=== PATIENT | female | born 1980 | race American Indian/Alaskan Native ===

== ENCOUNTER 2018-11-18 14:31 | Emergency (ER) | payer MEDICAID ==
--- NOTE | 2018-11-18 14:55 | Emergency Department Report ---
Chief Complaint: Psych Stated Complaint: SI Time Seen by Provider: 11/18/18 14:51 - HPI History of Present Illness: brought in by crisis counselor for hallucinations telling her to hurt herself No SI, No HI pt states she was hearing voices earlier and they were "bothering her" denies visual hallucinations previously has attempted overdose, denies that today PMhx schizoaffective, bipolar, PTSD, dementia, chromosome 9p deletion, seizures states she took her psych meds today (+) smoke (+) meth and crack two days ago no alcohol use MSE screening note: Focused history performed Due to findings the following was ordered: psych protocol ED Disposition for MSE Condition: Stable
[2018-11-18] MEDS ORDERED: ATIVAN IM PRN (15:13)
[2018-11-18] MEDS ORDERED: HALDOL IM PRN (15:13)
--- NOTE | 2018-11-18 15:30 | Emergency Department Report ---
ED General Adult HPI - General Chief complaint: Psych Stated complaint: SI Time Seen by Provider: 11/18/18 14:51 Source: patient Mode of arrival: Ambulatory Limitations: Other (patient psychotic and disorganized) - History of Present Illness Initial comments: This is a 38-year-old female. The patient is not known to this provider previously. Apparently, patient contacted her crisis team for hallucinations, and voices that which I her to overdose on medication. The patient has a history of suicide attempts, and polysubstance use, and possible cognitive delay. The patient presents to the emergency room disorganized, and psychotic. The patient does not have any friends or family members with her. The patient does not have anyone who can provide collateral information. The patient is initially angry, hyperverbal, obviously psychotic, and is not able to demonstrate decision-making capacity, or rational thought process. We attempted to verbally calm the patient down, and also use show of force, to help calm the patient down However, the patient was agitated, belligerent, continued to have hyperactive thought process, and did not demonstrate decision-making capacity or ability to care for herself. Patient was placed in seclusion for her safety. While in seclusion, patient took her sheets, wrapped it around her neck, and began making gestures that she was trying to choke herself. Therefore, the patient is medicated with Haldol, and Ativan, and subsequently Risperdal. She initially listed these medications as "allergies,", where she indicated that her allergic reaction with a seizure. However, after receiving these medications, she did not have any anaphylactic, or anaphylactoid reactions, and she did not have any documented seizures. It is suspected that the patient was untruthful with a reported allergies. -: unknown Quality: other Consistency: other Improves with: other Associated Symptoms: other - Related Data Allergies Allergy/AdvReac Type Severity Reaction Status Date / Time No Known Allergies Allergy Unverified 11/18/18 19:42 ED Review of Systems ROS: Stated complaint: SI Other details as noted in HPI Comment: Unobtainable due to pts medical conditions ED Past Medical Hx - Past Medical History Previous Medical History?: Yes Hx Seizures: Yes Hx Psychiatric Treatment: Yes (schizoaffective, bipolar) Hx Asthma: Yes Hx Dementia: Yes Additional medical history: developmental delay, chromosone 9p deletion, neuropathy - Surgical History Past Surgical History?: Yes - Social History Smoking Status: Current Every Day Smoker Substance Use Type: Cocaine, Methamphetamines ED Physical Exam - General Limitations: Other (A she is psychotic and disorganized) General appearance: anxious, in distress - Eye Eye exam: Present: normal appearance, PERRL, EOMI - ENT ENT exam: Present: normal exam, normal orophraynx, normal external ear exam, other (the patient is speaking in full sentences with no stridor or dysphonia) - Neck Neck exam: Present: normal inspection, full ROM. Absent: tenderness, meningismus - Respiratory Respiratory exam: Present: normal lung sounds bilaterally. Absent: respiratory distress, wheezes, rales, chest wall tenderness - Cardiovascular Cardiovascular Exam: Present: regular rate, normal rhythm, normal heart sounds. Absent: bradycardia, tachycardia, irregular rhythm - GI/Abdominal GI/Abdominal exam: Present: soft. Absent: distended, tenderness, guarding, rebound, rigid - Extremities Exam Extremities exam: Present: full ROM, other (2+ pulses noted in the bilateral upper, lower extremities. Compartments soft. No long bony tenderness. The pelvis is stable.). Absent: pedal edema, joint swelling, calf tenderness - Back Exam Back exam: Present: normal inspection, full ROM. Absent: paraspinal tenderness, vertebral tenderness - Neurological Exam Neurological exam: Present: alert (patient is alert to name. Moving 4 extremities. There is no facial droop. The tongue is midline. Extraocular movements are intact bilaterally.), normal gait - Psychiatric Psychiatric exam: Present: agitated, anxious ED Course Vital Signs 11/18/18 11/18/18 11/18/18 14:53 17:41 18:05 Temperature 98.4 F 98.4 F Pulse Rate 73 89 Respiratory 16 16 20 Rate Blood Pressure 113/67 Blood Pressure 109/58 [Left] O2 Sat by Pulse 98 100 20 L Oximetry - Reevaluation(s) Reevaluation #1: 11/18/18 19:16 Differential diagnosis, including not limited to: Psychosis, suicidality, mood disorder, medical clearance for psychiatric placement Assessment and plan: 38-year-old female with obvious psychosis, inability to care for herself, requires emergency screening laboratory studies to exclude potentially lethal toxicologic ingestion. Please note that there is a delay in acquisition of these laboratory studies as the patient was uncooperative, belligerent, verbally hostile, and required multiple medications and interventions in order to allow safe acquisition of laboratory studies. Patient has had multiple [id number] evaluations by myself after being given the aforementioned sedating medications to allow for safe acquisition of diagnostics. She's not had any adverse events as far. Psychiatric consultation has been requested. Reevaluation #2: 11/18/18 19:53 Laboratory studies reviewed and are unremarkable, at this point in time, there does not appear to be an immediate medical contraindication to psychiatric a dmission, evaluation, consultation and placement. ED Medical Decision Making - Lab Data Result diagrams: 11/18/18 19:12 11/18/18 19:12 Vital Signs 11/18/18 11/18/18 11/18/18 14:53 17:41 18:05 Temperature 98.4 F 98.4 F Pulse Rate 73 89 Respiratory 16 16 20 Rate Blood Pressure 113/67 Blood Pressure 109/58 [Left] O2 Sat by Pulse 98 100 20 L Oximetry Lab Results 11/18/18 11/18/18 11/18/18 Range/Units 19:12 19:12 19:12 WBC 7.2 (4.5-11.0) K/mm3 RBC 4.50 (3.65-5.03) M/mm3 Hgb 12.2 (10.1-14.3) gm/dl Hct 37.3 (30.3-42.9) % MCV 83 (79-97) fl MCH 27 L (28-32) pg MCHC 33 (30-34) % RDW 16.6 H (13.2-15.2) % Plt Count 190 (140-440) K/mm3 Lymph % (Auto) 35.4 H (13.4-35.0) % [place] % (Auto) 9.0 H (0.0-7.3) % Eos % (Auto) 3.3 (0.0-4.3) % Baso % (Auto) 1.0 (0.0-1.8) % Lymph # 2.6 (1.2-5.4) K/mm3 [place] # 0.7 (0.0-0.8) K/mm3 Eos # 0.2 (0.0-0.4) K/mm3 Baso # 0.1 (0.0-0.1) K/mm3 Seg Neutrophils % 51.3 (40.0-70.0) % Seg Neutrophils # 3.7 (1.8-7.7) K/mm3 Sodium 138 (137-145) mmol/L Potassium 4.1 (3.6-5.0) mmol/L Chloride 105.2 (98-107) mmol/L Carbon Dioxide 22 (22-30) mmol/L Anion Gap 15 mmol/L BUN 15 (7-17) mg/dL Creatinine 0.5 L (0.7-1.2) mg/dL Estimated GFR > 60 ml/min BUN/Creatinine Ratio 30 % Glucose 97 (65-100) mg/dL Calcium 8.6 (8.4-10.2) mg/dL Total Creatine Kinase (30-135) units/L HCG, Qual (Negative) Salicylates < 0.3 L (2.8-20.0) mg/dL Acetaminophen (10.0-30.0) ug/mL Plasma/Serum Alcohol (0-0.07) % 11/18/18 11/18/18 11/18/18 Range/Units 19:12 19:12 19:12 WBC (4.5-11.0) K/mm3 RBC (3.65-5.03) M/mm3 Hgb (10.1-14.3) gm/dl Hct (30.3-42.9) % MCV (79-97) fl MCH (28-32) pg MCHC (30-34) % RDW (13.2-15.2) % Plt Count (140-440) K/mm3 Lymph % (Auto) (13.4-35.0) % [place] % (Auto) (0.0-7.3) % Eos % (Auto) (0.0-4.3) % Baso % (Auto) (0.0-1.8) % Lymph # (1.2-5.4) K/mm3 [place] # (0.0-0.8) K/mm3 Eos # (0.0-0.4) K/mm3 Baso # (0.0-0.1) K/mm3 Seg Neutrophils % (40.0-70.0) % Seg Neutrophils # (1.8-7.7) K/mm3 Sodium (137-145) mmol/L Potassium (3.6-5.0) mmol/L Chloride (98-107) mmol/L Carbon Dioxide (22-30) mmol/L Anion Gap mmol/L BUN (7-17) mg/dL Creatinine (0.7-1.2) mg/dL Estimated GFR ml/min BUN/Creatinine Ratio % Glucose (65-100) mg/dL Calcium (8.4-10.2) mg/dL Total Creatine Kinase (30-135) units/L HCG, Qual Negative (Negative) Salicylates (2.8-20.0) mg/dL Acetaminophen < 5.0 L (10.0-30.0) ug/mL Plasma/Serum Alcohol < 0.01 (0-0.07) % 11/18/18 Range/Units 19:12 WBC (4.5-11.0) K/mm3 RBC (3.65-5.03) M/mm3 Hgb (10.1-14.3) gm/dl Hct (30.3-42.9) % MCV (79-97) fl MCH (28-32) pg MCHC (30-34) % RDW (13.2-15.2) % Plt Count (140-440) K/mm3 Lymph % (Auto) (13.4-35.0) % [place] % (Auto) (0.0-7.3) % Eos % (Auto) (0.0-4.3) % Baso % (Auto) (0.0-1.8) % Lymph # (1.2-5.4) K/mm3 [place] # (0.0-0.8) K/mm3 Eos # (0.0-0.4) K/mm3 Baso # (0.0-0.1) K/mm3 Seg Neutrophils % (40.0-70.0) % Seg Neutrophils # (1.8-7.7) K/mm3 Sodium (137-145) mmol/L Potassium (3.6-5.0) mmol/L Chloride (98-107) mmol/L Carbon Dioxide (22-30) mmol/L Anion Gap mmol/L BUN (7-17) mg/dL Creatinine (0.7-1.2) mg/dL Estimated GFR ml/min BUN/Creatinine Ratio % Glucose (65-100) mg/dL Calcium (8.4-10.2) mg/dL Total Creatine Kinase 90 (30-135) units/L HCG, Qual (Negative) Salicylates (2.8-20.0) mg/dL Acetaminophen (10.0-30.0) ug/mL Plasma/Serum Alcohol (0-0.07) % Critical care attestation.: If time is entered above; I have spent that time in minutes in the direct care of this critically ill patient, excluding procedure time. ED Disposition Clinical Impression: Psychosis Disposition: DC/TX-65 PSY HOSP/PSY UNIT Is pt being admited?: No Does the pt Need Aspirin: No Condition: Good Referrals: LOU TRAN MD [Primary Care Provider] - 3-5 Days
[2018-11-18] MEDS ORDERED: GEODON IM ONE (16:15)
[2018-11-18] MEDS ORDERED: GEODON IM PRN (16:30)
[2018-11-18 19:19] LABS: Basophils # (Auto) 0.1 K/mm3 (0.0-0.1); Eosinophils # (Auto) 0.2 K/mm3 (0.0-0.4); Eosinophils % (Auto) 3.3 % (0.0-4.3); Hematocrit 37.3 % (30.3-42.9); Hemoglobin 12.2 gm/dl (10.1-14.3); Lymphocytes # (Auto) 2.6 K/mm3 (1.2-5.4); Lymphocytes % (Auto) 35.4 % (13.4-35.0); Mean Corpuscular HGB Conc 33 % (30-34); Mean Corpuscular Volume 83 fl (79-97); Monocytes # (Auto) 0.7 K/mm3 (0.0-0.8); Platelet Count 190 K/mm3 (140-440); Red Cell Distribution Width 16.6 % (13.2-15.2)
[2018-11-18 19:33] LABS: BUN/Creatinine Ratio 30; Blood Urea Nitrogen 15 mg/dL (7-17); Calcium 8.6 mg/dL (8.4-10.2); Hemolysis Index 22
--- NOTE | 2018-11-19 10:16 | Consultation ---
History of Present Illness - Reason for Consult Consult date: 11/19/18 Reason for consult: Mental Health Evaluation Requesting physician: CLARISSA BASS - Chief Complaint Chief complaint: "I don't want to talk" - History of Present Psychiatric Illness 38 y.o. AA female who presented to the ER because of bizarre behavior. Today the patient refused to talk during the assessment. Per the notes, the patient presented psychotic. No gestures of SI/HI's. Medications and Allergies Allergies Allergy/AdvReac Type Severity Reaction Status Date / Time No Known Allergies Allergy Unverified 11/18/18 19:42 Active Meds: Active Medications Haloperidol Lactate (Haldol) 5 mg IM Q6HR PRN PRN Reason: Agitation Last Admin: 11/18/18 16:34 Dose: 5 mg Documented by: Lorazepam (Ativan) 2 mg IM Q4HR PRN PRN Reason: Agitation Last Admin: 11/18/18 16:34 Dose: 2 mg Documented by: Ziprasidone (Geodon) 10 mg IM Q2H PRN PRN Reason: Agitation Last Admin: 11/18/18 16:33 Dose: 10 mg Documented by: Past psychiatric history - Past Medical History Past Medical History: other (Unable to obtain ) Past Surgical History: Other (Unable to obtain ) - past Psychiatric treatment and history psychiatric treatment history: Unable to obtain a psy hx and a fam psy hx. - Social History Social history: other (Unable to obtain ) Mental Status Exam - Vital signs Last Vital Signs Temp 97.9 F 11/19/18 09:02 Pulse 90 11/19/18 09:02 Resp 18 11/19/18 09:02 BP 108/82 11/19/18 09:02 Pulse Ox 99 11/19/18 09:02 - Exam Narrative exam: Unable to complete the MSE because the patient refuse to cooperate. Results Result Diagrams: 11/18/18 19:12 11/18/18 19:12 Abnormal lab results 11/18/18 11/18/18 11/18/18 Range/Units 19:12 19:12 19:12 MCH 27 L (28-32) pg RDW 16.6 H (13.2-15.2) % Lymph % (Auto) 35.4 H (13.4-35.0) % [place] % (Auto) 9.0 H (0.0-7.3) % Creatinine 0.5 L (0.7-1.2) mg/dL Salicylates < 0.3 L (2.8-20.0) mg/dL Acetaminophen (10.0-30.0) ug/mL 11/18/18 Range/Units 19:12 MCH (28-32) pg RDW (13.2-15.2) % Lymph % (Auto) (13.4-35.0) % [place] % (Auto) (0.0-7.3) % Creatinine (0.7-1.2) mg/dL Salicylates (2.8-20.0) mg/dL Acetaminophen < 5.0 L (10.0-30.0) ug/mL All other labs normal. Assessment and Plan Assessment and plan: Impression: Today the patient is calm, but refuse to talk during the assessment." Recommendation/Plan: Continue 1013 and attempt to reassess the patient in 24 hours. Dispo: The patient was referred to inpatient pay services. Staffed with Dr Amanda Cash.
[2018-11-19 13:46] LABS: Bilirubin,Urine NEG (Negative); Blood,Urine MOD (Negative); Color,Urine Yellow (Yellow); Mucus,Urine FEW /HPF; Protein,Urine <15 mg/dL mg/dL (Negative); Urobilinogen,Urine < 2.0 mg/dL (<2.0); WBC,Urine < 1.0 /HPF (0.0-6.0)
[2018-11-19 14:00] LABS: Benzodiazepines Screen,Urine PRESUMPTIVE NEGATIVE; Cannabinoid Screen,Urine PRESUMPTIVE NEGATIVE; Cocaine Screen,Urine PRESUMPTIVE NEGATIVE; Methadone Screen,Urine PRESUMPTIVE NEGATIVE; Opiate Screen,Urine PRESUMPTIVE NEGATIVE
[2018-11-19 14:56] LABS: Amphetamine Screen,Urine PRESUMPTIVE POSITIVE
[2018-11-19 19:12] VITALS: BP 106/70
== END 2018-11-20 00:22 ==
LOC: ED 14:31 → EEVIPCON 14:31 → ED 11-20 00:22
DX: F29 Unspecified psychosis not due to a substance or known physiological condition (principal); F31.9 Bipolar disorder, unspecified; J45.909 Unspecified asthma, uncomplicated; F03.90 Unspecified dementia, unspecified severity, without behavioral disturbance, psychotic disturbance, mood disturbance, and anxiety; F17.200 Nicotine dependence, unspecified, uncomplicated; F14.10 Cocaine abuse, uncomplicated; F15.10 Other stimulant abuse, uncomplicated
CPT/HCPCS: 36415; 80048; 80164; 80307; 81001; 82550; 84703; 85025; 96372; 99285; G0480; J1630; J2060; J3486; 80320

== ENCOUNTER 2019-08-15 01:54 | Emergency (ER) | payer MEDICAID ==
[2019-08-15] MEDS ORDERED: diphenhydrAMINE 50 MG/ML VIAL IM ONE (02:04)
[2019-08-15] MEDS ORDERED: ZIPRASIDONE MESYLATE 20 MG VIAL IM ONE ×2 (02:04→20:57)
[2019-08-15 02:37] LABS: Basophils # (Auto) 0.1 K/mm3 (0.0-0.1); Basophils % (Auto) 1.5 % (0.0-1.8); Eosinophils # (Auto) 0.2 K/mm3 (0.0-0.4); Eosinophils % (Auto) 2.3 % (0.0-4.3); Hematocrit 35.8 % (30.3-42.9); Hemoglobin 11.8 gm/dl (10.1-14.3); Lymphocytes # (Auto) 2.5 K/mm3 (1.2-5.4); Lymphocytes % (Auto) 28.3 % (13.4-35.0); Mean Corpuscular HGB Conc 33 % (30-34); Mean Corpuscular Volume 80 fl (79-97); Monocytes # (Auto) 0.9 K/mm3 (0.0-0.8); Monocytes % (Auto) 10.5 % (0.0-7.3); Platelet Count 258 K/mm3 (140-440); Red Blood Count 4.48 M/mm3 (3.65-5.03); Red Cell Distribution Width 18.3 % (13.2-15.2)
[2019-08-15 02:55] LABS: BUN/Creatinine Ratio 26; Blood Urea Nitrogen 13 mg/dL (7-17); Calcium 8.9 mg/dL (8.4-10.2); Hemolysis Index 27
[2019-08-15 04:22] LABS: Bilirubin,Urine NEG (Negative); Blood,Urine SM (Negative); Color,Urine Straw (Yellow); Protein,Urine <15 mg/dL mg/dL (Negative); Urobilinogen,Urine < 2.0 mg/dL (<2.0)
[2019-08-15 04:30] LABS: Amphetamine Screen,Urine PRESUMPTIVE NEGATIVE; Benzodiazepines Screen,Urine PRESUMPTIVE NEGATIVE; Cannabinoid Screen,Urine PRESUMPTIVE NEGATIVE; Cocaine Screen,Urine PRESUMPTIVE NEGATIVE; Methadone Screen,Urine PRESUMPTIVE NEGATIVE; Opiate Screen,Urine PRESUMPTIVE NEGATIVE
--- NOTE | 2019-08-15 06:11 | Emergency Department Report ---
ED Psych HPI - General Chief Complaint: Psych Stated Complaint: SUICIDAL Time Seen by Provider: 08/15/19 02:04 Source: police, EMS Mode of arrival: Stretcher Limitations: No Limitations - History of Present Illness Initial Comments: 38-year-old female with a past medical history of asthma GERD, schizoaffective disorder, bipolar disorder, and developmental delay presents to the hospital with visual and auditory hallucinations prior to arrival. Patient called the crisis line for help and was subsequently brought here by first responders. Patient is agitated, pacing, and talking to herself in unable to be redirected. Patient was placed in isolation room and tried to strangle herself with a bed sheet. - Related Data Home Medications Medication Instructions Recorded Confirmed Last Taken Divalproex Sodium [Depakote] 500 mg PO BID 11/19/18 11/19/18 Unknown QUEtiapine [SEROquel] 200 mg PO QHS 11/19/18 11/19/18 Unknown Allergies Allergy/AdvReac Type Severity Reaction Status Date / Time No Known Allergies Allergy Unverified 11/18/18 19:42 ED Review of Systems ROS: Stated complaint: SUICIDAL Other details as noted in HPI Comment: All other systems reviewed and negative ED Past Medical Hx - Past Medical History Previous Medical History?: Yes Hx Seizures: Yes Hx Psychiatric Treatment: Yes (schizoaffective, bipolar) Hx Asthma: Yes Hx Dementia: Yes Additional medical history: developmental delay, chromosone 9p deletion, neuropathy - Surgical History Past Surgical History?: No - Social History Smoking Status: Current Every Day Smoker Substance Use Type: Cocaine, Methamphetamines - Medications Home Medications: Home Medications Medication Instructions Recorded Confirmed Last Taken Type Divalproex Sodium [Depakote] 500 mg PO BID 11/19/18 11/19/18 Unknown History QUEtiapine [SEROquel] 200 mg PO QHS 11/19/18 11/19/18 Unknown History ED Physical Exam - General Limitations: Altered Mental Status - Other Other exam information: General: No limitations, patient is alert in no acute distress Head exam: Atraumatic, normocephalic Eyes exam: Normal appearance ENT: Moist mucous membrane Neck exam: Normal inspection Respiratory exam: Clear to auscultation bilateral Cardiovascular: Normal rate and rhythm Abdomen: Soft, nondistended, and nontender, with normal bowel sounds, no rebound, or guarding Extremity: Full range of motion normal inspection no deformity Back: Normal Inspection, full range of motion, no tenderness Neurologic: Alert, oriented x3, cranial nerves intact, no motor or sensory deficit Psychiatric: Agitated, pacing, aggressive, and ability to redirect, hallucinations Skin: Warm, dry, intact ED Course Vital Signs 08/15/19 02:05 Temperature 98.0 F Pulse Rate 61 Respiratory 18 Rate Blood Pressure 117/78 [Left] O2 Sat by Pulse 99 Oximetry ED Medical Decision Making - Lab Data Result diagrams: 08/15/19 02:18 08/15/19 02:18 Lab Results 08/15/19 08/15/19 08/15/19 Range/Units 02:18 02:18 02:18 WBC 9.0 (4.5-11.0) K/mm3 RBC 4.48 (3.65-5.03) M/mm3 Hgb 11.8 (10.1-14.3) gm/dl Hct 35.8 (30.3-42.9) % MCV 80 (79-97) fl MCH 26 L (28-32) pg MCHC 33 (30-34) % RDW 18.3 H (13.2-15.2) % Plt Count 258 (140-440) K/mm3 Lymph % (Auto) 28.3 (13.4-35.0) % [place] % (Auto) 10.5 H (0.0-7.3) % Eos % (Auto) 2.3 (0.0-4.3) % Baso % (Auto) 1.5 (0.0-1.8) % Lymph # 2.5 (1.2-5.4) K/mm3 [place] # 0.9 H (0.0-0.8) K/mm3 Eos # 0.2 (0.0-0.4) K/mm3 Baso # 0.1 (0.0-0.1) K/mm3 Seg Neutrophils % 57.4 (40.0-70.0) % Seg Neutrophils # 5.1 (1.8-7.7) K/mm3 Sodium 137 (137-145) mmol/L Potassium 4.2 (3.6-5.0) mmol/L Chloride 101.7 (98-107) mmol/L Carbon Dioxide 22 (22-30) mmol/L Anion Gap 18 mmol/L BUN 13 (7-17) mg/dL Creatinine 0.5 L (0.7-1.2) mg/dL Estimated GFR > 60 ml/min BUN/Creatinine Ratio 26 % Glucose 97 (65-100) mg/dL Calcium 8.9 (8.4-10.2) mg/dL HCG, Qual (Negative) Urine Color (Yellow) Urine Turbidity (Clear) Urine pH (5.0-7.0) Ur Specific [place] (1.003-1.030) Urine Protein (Negative) mg/dL Urine Glucose (UA) (Negative) mg/dL Urine Ketones (Negative) mg/dL Urine Blood (Negative) Urine Nitrite (Negative) Urine Bilirubin (Negative) Urine Urobilinogen (<2.0) mg/dL Ur Leukocyte Esterase (Negative) Urine WBC (Auto) (0.0-6.0) /HPF Urine RBC (Auto) (0.0-6.0) /HPF Salicylates < 0.3 L (2.8-20.0) mg/dL Urine Opiates Screen Urine Methadone Screen Acetaminophen (10.0-30.0) ug/mL Ur Barbiturates Screen Valproic Acid < 2.8 L (50-100) ug/mL Ur Phencyclidine Scrn Ur Amphetamines Screen U Benzodiazepines Scrn Urine Cocaine Screen U Marijuana (THC) Screen Drugs of Abuse Note 08/15/19 08/15/19 08/15/19 Range/Units 02:18 02:18 03:55 WBC (4.5-11.0) K/mm3 RBC (3.65-5.03) M/mm3 Hgb (10.1-14.3) gm/dl Hct (30.3-42.9) % MCV (79-97) fl MCH (28-32) pg MCHC (30-34) % RDW (13.2-15.2) % Plt Count (140-440) K/mm3 Lymph % (Auto) (13.4-35.0) % [place] % (Auto) (0.0-7.3) % Eos % (Auto) (0.0-4.3) % Baso % (Auto) (0.0-1.8) % Lymph # (1.2-5.4) K/mm3 [place] # (0.0-0.8) K/mm3 Eos # (0.0-0.4) K/mm3 Baso # (0.0-0.1) K/mm3 Seg Neutrophils % (40.0-70.0) % Seg Neutrophils # (1.8-7.7) K/mm3 Sodium (137-145) mmol/L Potassium (3.6-5.0) mmol/L Chloride (98-107) mmol/L Carbon Dioxide (22-30) mmol/L Anion Gap mmol/L BUN (7-17) mg/dL Creatinine (0.7-1.2) mg/dL Estimated GFR ml/min BUN/Creatinine Ratio % Glucose (65-100) mg/dL Calcium (8.4-10.2) mg/dL HCG, Qual Negative (Negative) Urine Color Straw (Yellow) Urine Turbidity Clear (Clear) Urine pH 6.0 (5.0-7.0) Ur Specific [place] 1.009 (1.003-1.030) Urine Protein <15 mg/dl (Negative) mg/dL Urine Glucose (UA) Neg (Negative) mg/dL Urine Ketones Neg (Negative) mg/dL Urine Blood Sm (Negative) Urine Nitrite Neg (Negative) Urine Bilirubin Neg (Negative) Urine Urobilinogen < 2.0 (<2.0) mg/dL Ur Leukocyte Esterase Neg (Negative) Urine WBC (Auto) 2.0 (0.0-6.0) /HPF Urine RBC (Auto) 1.0 (0.0-6.0) /HPF Salicylates (2.8-20.0) mg/dL Urine Opiates Screen Urine Methadone Screen Acetaminophen < 5.0 L (10.0-30.0) ug/mL Ur Barbiturates Screen Valproic Acid (50-100) ug/mL Ur Phencyclidine Scrn Ur Amphetamines Screen U Benzodiazepines Scrn Urine Cocaine Screen U Marijuana (THC) Screen Drugs of Abuse Note 08/15/19 Range/Units 03:55 WBC (4.5-11.0) K/mm3 RBC (3.65-5.03) M/mm3 Hgb (10.1-14.3) gm/dl Hct (30.3-42.9) % MCV (79-97) fl MCH (28-32) pg MCHC (30-34) % RDW (13.2-15.2) % Plt Count (140-440) K/mm3 Lymph % (Auto) (13.4-35.0) % [place] % (Auto) (0.0-7.3) % Eos % (Auto) (0.0-4.3) % Baso % (Auto) (0.0-1.8) % Lymph # (1.2-5.4) K/mm3 [place] # (0.0-0.8) K/mm3 Eos # (0.0-0.4) K/mm3 Baso # (0.0-0.1) K/mm3 Seg Neutrophils % (40.0-70.0) % Seg Neutrophils # (1.8-7.7) K/mm3 Sodium (137-145) mmol/L Potassium (3.6-5.0) mmol/L Chloride (98-107) mmol/L Carbon Dioxide (22-30) mmol/L Anion Gap mmol/L BUN (7-17) mg/dL Creatinine (0.7-1.2) mg/dL Estimated GFR ml/min BUN/Creatinine Ratio % Glucose (65-100) mg/dL Calcium (8.4-10.2) mg/dL HCG, Qual (Negative) Urine Color (Yellow) Urine Turbidity (Clear) Urine pH (5.0-7.0) Ur Specific [place] (1.003-1.030) Urine Protein (Negative) mg/dL Urine Glucose (UA) (Negative) mg/dL Urine Ketones (Negative) mg/dL Urine Blood (Negative) Urine Nitrite (Negative) Urine Bilirubin (Negative) Urine Urobilinogen (<2.0) mg/dL Ur Leukocyte Esterase (Negative) Urine WBC (Auto) (0.0-6.0) /HPF Urine RBC (Auto) (0.0-6.0) /HPF Salicylates (2.8-20.0) mg/dL Urine Opiates Screen Presumptive negative Urine Methadone Screen Presumptive negative Acetaminophen (10.0-30.0) ug/mL Ur Barbiturates Screen Presumptive negative Valproic Acid (50-100) ug/mL Ur Phencyclidine Scrn Presumptive negative Ur Amphetamines Screen Presumptive negative U Benzodiazepines Scrn Presumptive negative Urine Cocaine Screen Presumptive negative U Marijuana (THC) Screen Presumptive negative Drugs of Abuse Note Disclamer - Medical Decision Making Patient presents psychotic requiring IM sedation for patient safety and safety of staff. 1013 signed and mental health evaluation pending - Differential Diagnosis psychosis, drug abuse Critical Care Time: No Critical care attestation.: If time is entered above; I have spent that time in minutes in the direct care of this critically ill patient, excluding procedure time. ED Disposition Clinical Impression: Psychosis, Suicidal behavior, Medical clearance for psychiatric admission Disposition: DC/TX-65 PSY HOSP/PSY UNIT Is pt being admited?: No Condition: Stable
[2019-08-16] MEDS: QUEtiapine 100 MG TAB PO SCH ×2 (01:52→23:48)
[2019-08-16] MEDS: DIVALPROEX ER 500 MG TAB PO SCH ×3 (01:52→23:48)
--- NOTE | 2019-08-16 11:54 | Consultation ---
History of Present Illness - Reason for Consult Consult date: 08/16/19 Reason for consult: Manage mental health - Chief Complaint Chief complaint: SI, A/V hallucinations - History of Present Psychiatric Illness Noel Zuniga is a 38 year old female patient who was admitted after calling the Hotline for SI, and A/V hallucinations. During my interview this morning, the patient was found laying down. She is awake. She is dressed appropriately. She is developmentally delayed and a poor historian. The patient makes poor eye contact. She is cooperative, but appears irritable at times. She says she is "not doing so good." She says she is "hearing voices telling her to hurt herself," and says she "can't control them." She also says she "sees people touching on her." Ms. Zuniga says she is "depressed, and wants to do something to myself." When asked about suicide attempts in the past, the patient replied "I don't know how many times." She replies "I don't know" when asked about current or past medications. She denies any elicit drug use, but says "smoke cigarettes sometimes." PAST PSYCHIATRIC HISTORY: Diagnoses: Schizophrenia, Bipolar Suicide attempts or Self-harm behavior: "yes, I don't know how many times" Prior psychiatric hospitalizations: "yes" Substance Abuse history: denies Previous psychiatric medications tried: "I don't know." Outpatient treatment: yes REVIEW OF SYSTEMS Constitutional: Negative for weight loss ENT: Negative for stridor Respiratory: Negative for cough All other systems reviewed and are negative PAST MEDICAL HISTORY: None reported Family Psychiatric History None reported or documented SOCIAL HISTORY Marital Status: Living Arrangements: Mother Employment Status: Disabled Access to guns/weapons: Denies Education: High school History of Abuse: Denies Legal History: Denies MSE Appearance: In bed. Appropriate clothing. Poor eye contact. Behavior: cooperative, irritable at times Mood: "Not so good, depressed" Affect: consisted with mood Thought Process: Goal directed Speech: Normal tone and pace Thought Content Harmfulness SI Hallucinations: A/V Delusions: none elicited Consciousness: Alert Cognition/Memory: Limited Insight/Judgment: Limited Assessment: Schizoaffective Disorder Treatment Plan Continue 1013 Medications: -Start Risperidone 0.25mg po BID -Start Geodon 10mg IM q4h PRN agitation Continue home medications (depakote and seroquel) Sitter: Defer to Primary Medical: Per Primary Disposition: The patient meets criteria for acute inpatient psychiatric treatment. Transfer to psych facility once medically stable. Will follow until transferred Please call with any questions or concerns. Thank you for this consult. Medications and Allergies Allergies Allergy/AdvReac Type Severity Reaction Status Date / Time No Known Allergies Allergy Unverified 11/18/18 19:42 Home Medications Medication Instructions Recorded Confirmed Last Taken Type Divalproex Sodium [Depakote] 500 mg PO BID 11/19/18 08/15/19 Unknown History QUEtiapine [SEROquel] 200 mg PO QHS 11/19/18 08/15/19 Unknown History Donepezil HCl [Donepezil HCl Odt] 5 mg PO 08/15/19 Unknown History Gabapentin 300 08/15/19 Unknown History Lacosamide [Vimpat] 200 08/15/19 Unknown History Active Meds: Active Medications Divalproex Sodium (Depakote Er) 500 mg PO BID [facility] Last Admin: 08/16/19 01:52 Dose: 500 mg Documented by: Quetiapine Fumarate (Seroquel) 200 mg PO [facility] Last Admin: 08/16/19 01:52 Dose: 200 mg Documented by: Mental Status Exam - Vital signs Last Vital Signs Temp 98.3 F 08/16/19 08:14 Pulse 90 08/16/19 08:14 Resp 16 08/16/19 02:12 BP 120/79 08/16/19 08:14 Pulse Ox 96 08/16/19 08:14 Results Result Diagrams: 08/15/19 02:18 08/15/19 02:18 All other labs normal.
[2019-08-16] MEDS: risperiDONE 0.25 MG TAB PO SCH ×2 (14:00→23:48)
[2019-08-16] MEDS ORDERED: GABAPENTIN 300 MG CAP PO ONE (16:00)
[2019-08-16] MEDS: ZIPRASIDONE MESYLATE 20 MG VIAL IM PRN (16:27)
[2019-08-16] MEDS ORDERED: LORazepam 2 MG/ML VIAL IM ONE (23:59)
[2019-08-17] MEDS ORDERED: LORazepam 2 MG/ML VIAL ONE (00:01)
[2019-08-17] MEDS: DIVALPROEX ER 500 MG TAB PO SCH (10:14)
[2019-08-17] MEDS: risperiDONE 0.25 MG TAB PO SCH (10:14)
--- NOTE | 2019-08-17 10:50 | Progress Note ---
Subjective - Reason for Consult Consult date: 08/17/19 Reason for consult: psychosis, SI - Chief Complaint Chief complaint: Reviewed the patient's medical chart and discussed the patient's progress with the nursing staff. The nurse notes states the patient became agitated. Medicated per MAR for agitation. Attempted to interview the patient this morning. She was lying on the cot. She is dressed appropriately. Asleep. She arouses easily. The patient was somewhat evasive. She would look at me briefly but would not answer any questions. REVIEW OF SYSTEMS Unable to complete MSE Appearance: In bed. Appropriate clothing. Asleep Behavior: Evasive Affect: Flat Unable to assess rest of mental status Assessment: Schizoaffective Disorder Treatment Plan Continue 1013 Ordered Valproic acid level to assess compliance and make sure dose is therapeutic Medications: Increased Risperidone 0.5mg po BID to help with agitation and irritability Sitter: Defer to Primary Medical: Per Primary Disposition: The patient meets criteria for acute inpatient psychiatric treatment. Transfer to psych facility once medically stable. Will follow until transferred Please call with any questions or concerns. Mental Status Exam - Vital signs Last Vital Signs Temp 98.1 F 08/17/19 09:35 Pulse 87 08/17/19 09:35 Resp 18 08/17/19 02:05 BP 98/68 08/17/19 09:35 Pulse Ox 100 08/17/19 09:35
[2019-08-17] MEDS ORDERED: risperiDONE 0.25 MG TAB PO SCH (12:00)
[2019-08-17 14:10] VITALS: BP 115/69
[2019-08-17] MEDS ORDERED: ZIPRASIDONE 20 MG CAP PO ONE (15:00)
[2019-08-17] MEDS ORDERED: WATER FOR INJ Sterile (PF) 10 ML ONE (16:31)
[2019-08-17] MEDS: ZIPRASIDONE MESYLATE 20 MG VIAL IM PRN (16:38)
== END 2019-08-17 17:31 ==
LOC: ED 01:54
DX: F25.0 Schizoaffective disorder, bipolar type (principal); G40.909 Epilepsy, unspecified, not intractable, without status epilepticus; J45.909 Unspecified asthma, uncomplicated; F17.200 Nicotine dependence, unspecified, uncomplicated; F15.10 Other stimulant abuse, uncomplicated; F14.10 Cocaine abuse, uncomplicated; Z79.899 Other long term (current) drug therapy
CPT/HCPCS: 36415; 80048; 80164; 80307; 81001; 84703; 85025; 96372; 99285; J1200; J2060; J3486; 80320; G0480

== ENCOUNTER 2020-03-16 14:29 | Emergency (ER) | payer MEDICAID ==
--- NOTE | 2020-03-16 14:34 | Event Note ---
ED Screening Note ED Screening Note: meth and cocaine last use 1 w ago no si no hi pmh bipolar This initial assessment/diagnostic orders/clinical plan/treatment(s) is/are subject to change based on patients health status, clinical progression and re- assessment by fellow clinical providers in the ED. Further treatment and workup at subsequent clinical providers discretion. Patient/guardian urged not to elope from the ED as their condition may be serious if not clinically assessed and managed. Initial orders include: psych bruce
[2020-03-16 15:32] LABS: Bilirubin,Urine NEG (Negative); Blood,Urine LG (Negative); Color,Urine Yellow (Yellow); Mucus,Urine FEW /HPF; Protein,Urine <15 mg/dL mg/dL (Negative); Urobilinogen,Urine < 2.0 mg/dL (<2.0)
[2020-03-16 15:37] LABS: Amphetamine Screen,Urine Negative; Benzodiazepines Screen,Urine Negative; Cannabinoid Screen,Urine Negative; Cocaine Screen,Urine Negative; Methadone Screen,Urine Negative; Opiate Screen,Urine Negative
[2020-03-16 16:46] LABS: Basophils # (Auto) 0.1 K/mm3 (0.0-0.1); Eosinophils # (Auto) 0.4 K/mm3 (0.0-0.4); Eosinophils % (Auto) 4.5 % (0.0-4.3); Hematocrit 35.3 % (30.3-42.9); Hemoglobin 11.5 gm/dl (10.1-14.3); Lymphocytes # (Auto) 2.5 K/mm3 (1.2-5.4); Lymphocytes % (Auto) 31.1 % (13.4-35.0); Mean Corpuscular HGB Conc 33 % (30-34); Mean Corpuscular Volume 80 fl (79-97); Monocytes # (Auto) 0.5 K/mm3 (0.0-0.8); Monocytes % (Auto) 6.2 % (0.0-7.3); Platelet Count 261 K/mm3 (140-440); Red Blood Count 4.39 M/mm3 (3.65-5.03); Red Cell Distribution Width 19.9 % (13.2-15.2)
[2020-03-16 16:59] LABS: Blood Urea Nitrogen 10 mg/dL (7-17); Calcium 8.8 mg/dL (8.4-10.2)
[2020-03-16 17:00] LABS: Hemolysis Index 9
[2020-03-16 17:03] LABS: BUN/Creatinine Ratio 17
[2020-03-16 21:53] VITALS: BP 137/89
--- NOTE | 2020-03-16 22:25 | Emergency Department Report ---
ED Psych HPI - General Chief Complaint: Psych Stated Complaint: DETOX Time Seen by Provider: 03/16/20 14:33 Source: patient, family Mode of arrival: Ambulatory Limitations: No Limitations - History of Present Illness Initial Comments: 39-year-old female the past medical history of asthma, schizoaffective disorder, bipolar disorder, seizures, developmental delay, chromosome 9P deletion, and neuropathy presents to the hospital requesting help with substance abuse. Patient is abusing meth and crack with last use 1 week ago. She states she does not want to use anymore and is requesting inpatient detox. She is requesting to call her mother who is her power of trademark attorney. Mother states that the reason she has been clean for 1 week is because she has been keeping close watch of her and limiting her exposure to others. She has been attempting to call multiple facilities for treatment but keeps meeting roadblocks regarding to acceptance guideline and availability. Patient does not have any physical complaints, denies hallucinations, suicidal, or homicidal ideation Mother: Evelin Nichols [phone] - Related Data Home Medications Medication Instructions Recorded Confirmed Last Taken Divalproex Sodium [Depakote] 500 mg PO BID 11/19/18 08/15/19 Unknown QUEtiapine [SEROquel] 200 mg PO QHS 11/19/18 08/15/19 Unknown Donepezil HCl [Donepezil HCl Odt] 5 mg PO 08/15/19 Unknown Gabapentin 300 08/15/19 Unknown Lacosamide [Vimpat] 200 08/15/19 Unknown Allergies Allergy/AdvReac Type Severity Reaction Status Date / Time No Known Allergies Allergy Unverified 11/18/18 19:42 ED Review of Systems ROS: Stated complaint: DETOX Other details as noted in HPI Comment: All other systems reviewed and negative ED Past Medical Hx - Past Medical History Previous Medical History?: Yes Hx Seizures: Yes Hx Psychiatric Treatment: Yes (schizoaffective, bipolar) Hx Asthma: Yes Hx Dementia: Yes Additional medical history: developmental delay, chromosone 9p deletion, neuropathy - Surgical History Past Surgical History?: Yes Additional Surgical History: tubal ligation, bladder x 2 - Social History Smoking Status: Current Every Day Smoker Substance Use Type: Cocaine, Methamphetamines - Medications Home Medications: Home Medications Medication Instructions Recorded Confirmed Last Taken Type Divalproex Sodium [Depakote] 500 mg PO BID 11/19/18 08/15/19 Unknown History QUEtiapine [SEROquel] 200 mg PO QHS 11/19/18 08/15/19 Unknown History Donepezil HCl [Donepezil HCl Odt] 5 mg PO 08/15/19 Unknown History Gabapentin 300 08/15/19 Unknown History Lacosamide [Vimpat] 200 08/15/19 Unknown History ED Physical Exam - General Limitations: No Limitations - Other Other exam information: General: No acute distress Head: Atraumatic Eyes: normal appearance ENT: Moist mucous membranes Neck: Normal appearance, no midline tenderness Chest: Clear to auscultation bilaterally CV: Regular rate and rhythm Abdomen: Soft, normal bowel sounds, nontender, nondistended, no rebound or guarding Back: Normal inspection Extremity: Normal inspection, full range of motion Neuro: Oriented to self (baseline developmental delay patient unable to tell me the year or the name of the hospital), no facial asymmetry, speech clear, no gr oss motor sensory deficit Psych: Appropriate behavior Skin: No rash ED Course Vital Signs 03/16/20 03/16/20 14:52 21:52 Temperature 99.0 F Pulse Rate 100 H 88 Respiratory 16 16 Rate Blood Pressure 116/76 Blood Pressure 137/89 [left arm] O2 Sat by Pulse 98 99 Oximetry ED Medical Decision Making - Lab Data Result diagrams: 03/16/20 16:22 03/16/20 16:22 Lab Results 03/16/20 03/16/20 03/16/20 Range/Units 16:22 16:22 16:22 WBC 8.1 (4.5-11.0) K/mm3 RBC 4.39 (3.65-5.03) M/mm3 Hgb 11.5 (10.1-14.3) gm/dl Hct 35.3 (30.3-42.9) % MCV 80 (79-97) fl MCH 26 L (28-32) pg MCHC 33 (30-34) % RDW 19.9 H (13.2-15.2) % Plt Count 261 (140-440) K/mm3 Lymph % (Auto) 31.1 (13.4-35.0) % [place] % (Auto) 6.2 (0.0-7.3) % Eos % (Auto) 4.5 H (0.0-4.3) % Baso % (Auto) 1.0 (0.0-1.8) % Lymph # 2.5 (1.2-5.4) K/mm3 [place] # 0.5 (0.0-0.8) K/mm3 Eos # 0.4 (0.0-0.4) K/mm3 Baso # 0.1 (0.0-0.1) K/mm3 Seg Neutrophils % 57.2 (40.0-70.0) % Seg Neutrophils # 4.6 (1.8-7.7) K/mm3 Sodium 137 (137-145) mmol/L Potassium 3.9 (3.6-5.0) mmol/L Chloride 103.4 (98-107) mmol/L Carbon Dioxide 21 L (22-30) mmol/L Anion Gap 17 mmol/L BUN 10 (7-17) mg/dL Creatinine 0.6 (0.6-1.2) mg/dL Estimated GFR > 60 ml/min BUN/Creatinine Ratio 17 % Glucose 104 H (65-100) mg/dL Calcium 8.8 (8.4-10.2) mg/dL TSH 1.130 (0.270-4.200) mlU/mL HCG, Qual (Negative) Urine Color (Yellow) Urine Turbidity (Clear) Urine pH (5.0-7.0) Ur Specific [place] (1.003-1.030) Urine Protein (Negative) mg/dL Urine Glucose (UA) (Negative) mg/dL Urine Ketones (Negative) mg/dL Urine Blood (Negative) Urine Nitrite (Negative) Urine Bilirubin (Negative) Urine Urobilinogen (<2.0) mg/dL Ur Leukocyte Esterase (Negative) Urine WBC (Auto) (0.0-6.0) /HPF Urine RBC (Auto) (0.0-6.0) /HPF U Epithel Cells (Auto) (0-13.0) /HPF Urine Mucus /HPF Salicylates (2.8-20.0) mg/dL Urine Opiates Screen Urine Methadone Screen Acetaminophen (10.0-30.0) ug/mL Ur Barbiturates Screen Ur Phencyclidine Scrn Ur Amphetamines Screen U Benzodiazepines Scrn Urine Cocaine Screen U Marijuana (THC) Screen Drugs of Abuse Note Plasma/Serum Alcohol (0-0.07) % 03/16/20 03/16/20 03/16/20 Range/Units 16:22 16:22 16:22 WBC (4.5-11.0) K/mm3 RBC (3.65-5.03) M/mm3 Hgb (10.1-14.3) gm/dl Hct (30.3-42.9) % MCV (79-97) fl MCH (28-32) pg MCHC (30-34) % RDW (13.2-15.2) % Plt Count (140-440) K/mm3 Lymph % (Auto) (13.4-35.0) % [place] % (Auto) (0.0-7.3) % Eos % (Auto) (0.0-4.3) % Baso % (Auto) (0.0-1.8) % Lymph # (1.2-5.4) K/mm3 [place] # (0.0-0.8) K/mm3 Eos # (0.0-0.4) K/mm3 Baso # (0.0-0.1) K/mm3 Seg Neutrophils % (40.0-70.0) % Seg Neutrophils # (1.8-7.7) K/mm3 Sodium (137-145) mmol/L Potassium (3.6-5.0) mmol/L Chloride (98-107) mmol/L Carbon Dioxide (22-30) mmol/L Anion Gap mmol/L BUN (7-17) mg/dL Creatinine (0.6-1.2) mg/dL Estimated GFR ml/min BUN/Creatinine Ratio % Glucose (65-100) mg/dL Calcium (8.4-10.2) mg/dL TSH (0.270-4.200) mlU/mL HCG, Qual (Negative) Urine Color (Yellow) Urine Turbidity (Clear) Urine pH (5.0-7.0) Ur Specific [place] (1.003-1.030) Urine Protein (Negative) mg/dL Urine Glucose (UA) (Negative) mg/dL Urine Ketones (Negative) mg/dL Urine Blood (Negative) Urine Nitrite (Negative) Urine Bilirubin (Negative) Urine Urobilinogen (<2.0) mg/dL Ur Leukocyte Esterase (Negative) Urine WBC (Auto) (0.0-6.0) /HPF Urine RBC (Auto) (0.0-6.0) /HPF U Epithel Cells (Auto) (0-13.0) /HPF Urine Mucus /HPF Salicylates < 0.3 L (2.8-20.0) mg/dL Urine Opiates Screen Urine Methadone Screen Acetaminophen 5.0 L (10.0-30.0) ug/mL Ur Barbiturates Screen Ur Phencyclidine Scrn Ur Amphetamines Screen U Benzodiazepines Scrn Urine Cocaine Screen U Marijuana (THC) Screen Drugs of Abuse Note Plasma/Serum Alcohol < 0.01 (0-0.07) % 03/16/20 03/16/20 03/16/20 Range/Units 16:22 Unknown Unknown WBC (4.5-11.0) K/mm3 RBC (3.65-5.03) M/mm3 Hgb (10.1-14.3) gm/dl Hct (30.3-42.9) % MCV (79-97) fl MCH (28-32) pg MCHC (30-34) % RDW (13.2-15.2) % Plt Count (140-440) K/mm3 Lymph % (Auto) (13.4-35.0) % [place] % (Auto) (0.0-7.3) % Eos % (Auto) (0.0-4.3) % Baso % (Auto) (0.0-1.8) % Lymph # (1.2-5.4) K/mm3 [place] # (0.0-0.8) K/mm3 Eos # (0.0-0.4) K/mm3 Baso # (0.0-0.1) K/mm3 Seg Neutrophils % (40.0-70.0) % Seg Neutrophils # (1.8-7.7) K/mm3 Sodium (137-145) mmol/L Potassium (3.6-5.0) mmol/L Chloride (98-107) mmol/L Carbon Dioxide (22-30) mmol/L Anion Gap mmol/L BUN (7-17) mg/dL Creatinine (0.6-1.2) mg/dL Estimated GFR ml/min BUN/Creatinine Ratio % Glucose (65-100) mg/dL Calcium (8.4-10.2) mg/dL TSH (0.270-4.200) mlU/mL HCG, Qual Negative (Negative) Urine Color Yellow (Yellow) Urine Turbidity Clear (Clear) Urine pH 5.0 (5.0-7.0) Ur Specific [place] 1.018 (1.003-1.030) Urine Protein <15 mg/dl (Negative) mg/dL Urine Glucose (UA) Neg (Negative) mg/dL Urine Ketones Neg (Negative) mg/dL Urine Blood Lg (Negative) Urine Nitrite Neg (Negative) Urine Bilirubin Neg (Negative) Urine Urobilinogen < 2.0 (<2.0) mg/dL Ur Leukocyte Esterase Tr (Negative) Urine WBC (Auto) 1.0 (0.0-6.0) /HPF Urine RBC (Auto) 3.0 (0.0-6.0) /HPF U Epithel Cells (Auto) 1.0 (0-13.0) /HPF Urine Mucus Few /HPF Salicylates (2.8-20.0) mg/dL Urine Opiates Screen Negative Urine Methadone Screen Negative Acetaminophen (10.0-30.0) ug/mL Ur Barbiturates Screen Negative Ur Phencyclidine Scrn Negative Ur Amphetamines Screen Negative U Benzodiazepines Scrn Negative Urine Cocaine Screen Negative U Marijuana (THC) Screen Negative Drugs of Abuse Note Disclamer Plasma/Serum Alcohol (0-0.07) % - Medical Decision Making Patient with a history of developmental delay, bipolar disorder, schizoaffective disorder, and meth and crack abuse. Patient has not used drugs in 1 week due to persistent monitoring by her mother. UDS is currently negative for all tested substances. Patient has no physical complaints with normal labs. Patient is medically cleared however, I explained to mother that we do not place patients into emergent inpatient treatment through the ER for meth and crack abuse. Patient will be provided substance abuse programs as well as mental health support programs given her underlying psychiatric disorder. Patient by me criteria for 1013 given lack of acute psychosis, SI, and HI. I spoke to mother on the phone and she will come to the ED to warp picker patient. Critical Care Time: No Critical care attestation.: If time is entered above; I have spent that time in minutes in the direct care of this critically ill patient, excluding procedure time. ED Disposition Clinical Impression: Methamphetamine abuse, History of crack cocaine use, Schizoaffective disorder, Bipolar disorder, History of developmental delay Disposition: DC-01 TO HOME OR SELFCARE Is pt being admited?: No Does the pt Need Aspirin: No Condition: Stable Instructions: Cocaine Abuse (ED), Methamphetamine Abuse (ED) Additional Instructions: Follow-up with the resources provided for substance abuse and mental health treatment (see separate papers provided). You have provided a copy of your labs from today. Return if symptoms worsen as indicated by your discharge instructions Referrals: PRIMARY CARE, [Primary Care Provider] - 3-5 Days Time of Disposition: 22:31
== END 2020-03-16 23:08 | disposition home or self-care (01) ==
LOC: ED 14:29
DX: F15.10 Other stimulant abuse, uncomplicated (principal); F14.90 Cocaine use, unspecified, uncomplicated; F25.0 Schizoaffective disorder, bipolar type; G40.909 Epilepsy, unspecified, not intractable, without status epilepticus; J45.909 Unspecified asthma, uncomplicated; F17.200 Nicotine dependence, unspecified, uncomplicated; Z79.899 Other long term (current) drug therapy; Z98.890 Other specified postprocedural states; Z98.51 Tubal ligation status
CPT/HCPCS: 36415; 80048; 80307; 80320; 81001; 84443; 84703; 85025; 99283; G0480

== ENCOUNTER 2020-11-05 17:18 | Emergency (ER) | payer MEDICAID ==
[2020-11-05 19:01] VITALS: BP 133/71
--- NOTE | 2020-11-05 19:48 | Emergency Department Report ---
Minor Respiratory - HPI Chief Complaint: Upper Respiratory Infection Stated Complaint: BODY ACHES/SOB/COUGH Time Seen by Provider: 11/05/20 19:43 Minor Respiratory: Yes Rhinorrhea, Yes Able to Tolerate Fluids, Yes Cough, No Sore Throat, No Ear Pain, No Sick Contacts, No Hemoptysis, No Chest Pain, No Shortness of Breath, No Fever Other History: 40-year-old -[place] female presents to the emergency room complaining of cough chills and body aches for 1-1/2 weeks. Patient reports she has runny nose. She has taken nothing for symptoms. She denies any chest pain no shortness of breath no fever no chills no nausea vomiting diarrhea no loss of taste or smell. She is followed by [facility] family medicine. She denies any SI or HI. She has no known drug allergies. ED Review of Systems ROS: Stated complaint: BODY ACHES/SOB/COUGH Other details as noted in HPI Comment: All other systems reviewed and negative ED Past Medical Hx - Past Medical History Previous Medical History?: Yes Hx Seizures: Yes Hx Psychiatric Treatment: Yes (schizoaffective, bipolar) Hx Asthma: Yes Hx Dementia: Yes Additional medical history: developmental delay, chromosone 9p deletion, neuropathy - Surgical History Past Surgical History?: Yes Additional Surgical History: tubal ligation, bladder x 2 - Social History Smoking Status: Current Every Day Smoker Substance Use Type: None - Medications Home Medications: Home Medications Medication Instructions Recorded Confirmed Last Taken Type Divalproex Sodium [Depakote] 500 mg PO BID 11/19/18 08/15/19 Unknown History QUEtiapine [SEROquel] 200 mg PO QHS 11/19/18 08/15/19 Unknown History Donepezil HCl [Donepezil HCl Odt] 5 mg PO 08/15/19 Unknown History Gabapentin 300 08/15/19 Unknown History Lacosamide [Vimpat] 200 08/15/19 Unknown History Loratadine [Allergy Relief] 10 mg PO QDAY #30 tablet 11/05/20 Unknown Rx Minor Respiratory Exam - Exam General: Vital signs noted. No distress. Alert and acting appropriately. HEENT: Yes Moist Mucous Membranes, No Pharyngeal Erythema, No Pharyngeal Exudates, No Rhinorrhea, No Conjuctival Injection, No Frontal Tenderness, No Maxillary Tenderness Neck: Yes Supple, No Adenopathy Lungs: Yes Good Air Exchange, No Wheezes, No Ronchi, No Stridor, No Cough, No Labored Respirations, No Retractions, No Use of Accessory Muscles, No Other Abnormal Lung Sounds Heart: Yes Regular, No Murmur Abdomen: Yes Normal Bowel Sounds, No Tenderness, No Peritoneal Signs Skin: No Rash, No Edema Neurologic: Alert and oriented, no deficits. Musculoskeletal: Unremarkable. ED Course Vital Signs 11/05/20 18:58 Temperature 98.2 F Pulse Rate 85 Respiratory 18 Rate Blood Pressure 133/71 O2 Sat by Pulse 99 Oximetry ED Medical Decision Making - Medical Decision Making 40-year-old -[place] female presents to the emergency room complaining of cough, Chills and body aches for 1-1/2 weeks. Patient reports she has runny nose. She has taken nothing for symptoms. She denies any chest pain no shortness of breath no fever no chills no nausea vomiting diarrhea no loss of taste or smell. She is followed by [facility]. She denies any SI or HI. She has no known drug allergies. Recommend [id number] Claritin and Flonase as well as ibuprofen for body aches. Critical care attestation.: If time is entered above; I have spent that time in minutes in the direct care of this critically ill patient, excluding procedure time. ED Disposition Clinical Impression: Viral syndrome Allergic rhinitis Qualifiers: Allergic rhinitis trigger: unspecified Allergic rhinitis seasonality: unspecified Qualified Code(s): J30.9 - Allergic rhinitis, unspecified Disposition: DC-01 TO HOME OR SELFCARE Is pt being admited?: No Does the pt Need Aspirin: No Condition: Stable Instructions: Viral Respiratory Infection, [id number] Additional Instructions: Take medication as prescribed. Tylenol or ibuprofen as needed for body aches. Increase your fluid intake follow-up with your primary care provider. Prescriptions: Loratadine [Allergy Relief] 10 mg PO QDAY #30 tablet Referrals: Your, primary care provider [Other] - 3-5 Days
== END 2020-11-05 20:00 | disposition home or self-care (01) ==
LOC: ED 17:18
DX: J30.9 Allergic rhinitis, unspecified (principal); B34.9 Viral infection, unspecified; R56.9 Unspecified convulsions; F03.90 Unspecified dementia, unspecified severity, without behavioral disturbance, psychotic disturbance, mood disturbance, and anxiety; F17.200 Nicotine dependence, unspecified, uncomplicated; Z98.51 Tubal ligation status; Z79.899 Other long term (current) drug therapy
CPT/HCPCS: 99282

== ENCOUNTER 2020-12-23 20:59 | Emergency (ER) | payer MEDICAID ==
--- NOTE | 2020-12-23 21:07 | Emergency Department Report ---
ED General Adult HPI - General Chief complaint: Psych Stated complaint: im fine. my belly hurts. dont talk to me PUI?: No Time Seen by Provider: 12/23/20 21:04 Source: patient, EMS (Verbal report received from emergency medical services. EMS documentation not available at time of chart dictation ), RN notes reviewed, old records reviewed Mode of arrival: Stretcher Limitations: Other (Patient disorganized.) - History of Present Illness Initial comments: The patient was evaluated in the emergency department for symptoms described in the history of present illness. He/she was evaluated in the context of the global COVID-19 pandemic, which necessitated consideration that the patient might be at risk for infection with the virus that causes COVID-19. Institutional protocols and algorithms that pertain to the evaluation of patients at risk for COVID-19 are in a state of rapid change based on information released by regulatory bodies including the CDC and federal and state organizations. These policies and algorithms were followed during the patient's care in the emergency department. Please note that these policies, procedures and recommendations changed on a rapid basis. This is a 40-year-old female. I have evaluated this patient in the past. Her past medical history includes asthma, schizoaffective disorder, bipolar disorder, seizure, developmental delay, neuropathy, obesity, chromosome 9P deletion. The patient is brought to the hospital by emergency medical services with a complaint of possible seizure-like activity. EMS reports to myself that the patient had normal vital signs and Accu-Chek in the field, and was having nonspecific shaking activity while awake. Upon arrival to the emergency room, the patient is awake, and her shaking activity has resolved. The patient insists that she does not live with her mother, and lives with her "doctor." The patient states she is not homicidal or suicidal, and she is not having hallucinations. She denies headache, but complains of lower abdominal pain. She states that she is not . The patient is disorganized and a poor historian, and not able to describe the qualitative nature of her symptoms, exacerbating, or relieving factors. Patient attempted to run away/eloped multiple times, and initially did not respond to verbal de-escalation techniques or show of force, and therefore required medication with haloperidol and Ativan, as well as code day being activated overhead. -: This afternoon Location: abdomen Quality: other Consistency: other Improves with: other Worsens with: other - Related Data Home Medications Medication Instructions Recorded Confirmed Last Taken Divalproex Sodium [Depakote] 500 mg PO BID 11/19/18 08/15/19 Unknown QUEtiapine [SEROquel] 200 mg PO QHS 11/19/18 08/15/19 Unknown Donepezil HCl [Donepezil HCl Odt] 5 mg PO 08/15/19 Unknown Gabapentin 300 08/15/19 Unknown Lacosamide [Vimpat] 200 08/15/19 Unknown Previous Rx's Medication Instructions Recorded Last Taken Type Loratadine [Allergy Relief] 10 mg PO QDAY #30 tablet 11/05/20 Unknown Rx Allergies Allergy/AdvReac Type Severity Reaction Status Date / Time No Known Allergies Allergy Unverified 11/18/18 19:42 ED Review of Systems ROS: Stated complaint: DIZZINESS/POS SEIZURE Other details as noted in HPI Constitutional: denies: fever Respiratory: denies: cough Cardiovascular: denies: chest pain Gastrointestinal: abdominal pain Psychiatric: denies: auditory hallucinations, visual hallucinations, homicidal thoughts, suicidal thoughts ED Past Medical Hx - Past Medical History Hx Seizures: Yes Hx Psychiatric Treatment: Yes (schizoaffective, bipolar) Hx Asthma: Yes Hx Dementia: Yes Additional medical history: developmental delay, chromosone 9p deletion, neuropathy - Surgical History Additional Surgical History: tubal ligation, bladder x 2 - Social History Smoking Status: Current Every Day Smoker Substance Use Type: None - Medications Home Medications: Home Medications Medication Instructions Recorded Confirmed Last Taken Type Divalproex Sodium [Depakote] 500 mg PO BID 11/19/18 08/15/19 Unknown History QUEtiapine [SEROquel] 200 mg PO QHS 11/19/18 08/15/19 Unknown History Donepezil HCl [Donepezil HCl Odt] 5 mg PO 08/15/19 Unknown History Gabapentin 300 08/15/19 Unknown History Lacosamide [Vimpat] 200 08/15/19 Unknown History Loratadine [Allergy Relief] 10 mg PO QDAY #30 tablet 11/05/20 Unknown Rx ED Physical Exam - General Limitations: Other (Disorganized behavior) General appearance: anxious, obese - Head Head exam: Present: atraumatic, normocephalic - Eye Eye exam: Present: normal appearance, EOMI. Absent: nystagmus - ENT ENT exam: Present: normal exam, normal orophraynx, mucous membranes moist, normal external ear exam - Neck Neck exam: Present: normal inspection, full ROM. Absent: tenderness, meningismus - Respiratory Respiratory exam: Present: normal lung sounds bilaterally. Absent: respiratory distress, wheezes, rales, rhonchi, stridor, decreased breath sounds - Cardiovascular Cardiovascular Exam: Present: regular rate, normal rhythm, normal heart sounds. Absent: bradycardia, tachycardia, irregular rhythm, systolic murmur, diastolic murmur, rubs, gallop - GI/Abdominal GI/Abdominal exam: Present: soft, tenderness, other (There is suprapubic and right lower quadrant tenderness). Absent: distended, guarding, rebound, rigid, pulsatile mass - Extremities Exam Extremities exam: Present: normal inspection, full ROM, other (2+ pulses noted in the bilateral upper and lower extremities. There is no palpable cord. negative Homans sign. Muscular compartments are soft. The pelvis is stable.). Absent: pedal edema, calf tenderness - Back Exam Back exam: Present: normal inspection, full ROM. Absent: tenderness, CVA tenderness (R), CVA tenderness (L), paraspinal tenderness, vertebral tenderness - Neurological Exam Neurological exam: Present: alert (Patient is alert to name. She thinks it is 2018. She thinks it is the month of November.), other (No facial droop. Tongue midline. Extraocular movements intact bilaterally. Facial sensation intact to light touch in V1, V2, V3 distribution bilaterally. 5 and a 5 strength in 4 extremities. Sensation intact to light touch in 4 extremities.) - Psychiatric Psychiatric exam: Present: anxious. Absent: homicidal ideation, suicidal ideation - Skin Skin exam: Present: warm, dry, intact, normal color. Absent: rash ED Course Vital Signs 12/23/20 12/23/20 12/24/20 21:26 23:44 01:00 Temperature 98.4 F 97.5 F L Pulse Rate 101 H 81 81 Respiratory 20 18 18 Rate Blood Pressure 137/87 117/79 115/83 [Left] O2 Sat by Pulse 97 98 98 Oximetry O2 Sat by Pulse Oximetry [ Digit-Finger] 12/24/20 12/24/20 01:53 08:17 Temperature 97.9 F Pulse Rate 80 Respiratory 20 Rate Blood Pressure 110/60 [Left] O2 Sat by Pulse 98 Oximetry O2 Sat by Pulse 96 Oximetry [ Digit-Finger] - Reevaluation(s) Reevaluation #1: 12/23/20 22:13 Differential diagnosis, including but not limited to: Seizure, pseudoseizure, appendicitis, colitis, urinary tract infection, renal colic, perforated viscus, conversion disorder, medical clearance for psychiatric placement Assessment and plan: 40-year-old female, with resolved convulsive activity, who is awake, but disorganized, not oriented to time, or month, who does not exhibit decision- making capacity, does not demonstrate the ability to care for herself independently, requiring activation of code day, with a simultaneous complaint of abdominal pain. Place patient on hold status. Continue as needed medications. Obtain appropriate laboratory studies, EKG, noncontrast CT scan of the brain, and CT scan of the abdomen pelvis. Obtain mental health evaluation, and case management consultation after being medically cleared. Order Covid test in case patient requires placement for psychiatric social disposition. Reassess after initial data points. Reevaluation #2: 12/23/20 23:41 Patient resting comfortably in stretcher, and in no acute distress at this time. CT scan abdomen pelvis negative for acute findings. Vital signs unremarkable. CT scan brain negative for acute findings. Nonspecific abnormal finding reviewed and appreciated. Contacted the interpreting radiologist, and we discussed this nonspecific finding. He advised that this is very unlikely to be suggestive of stroke, or ischemic disease, and worst case scenario might represent demyelinating disease, which can be followed up as an outpatient. Patient is also medically suitable for psychiatric and or case management consultation and evaluation at this time, and she does not appear to have an emergent medical condition at this time which would preclude psychiatric consultation, and placement, if psych team deems it necessary, will discharge with outpatient follow-up We are awaiting psychiatry/crisis team's recommendations. 12/24/20 01:51 The mobile crisis team has arrived to evaluate the patient. However, she is sleeping in her stretcher, and as per their policy and protocol, they state they cannot wake this patient up to do their evaluation. I have just gone into the room, and woke the patient up, and asked her if she will speak to the mobile crisis team. The patient tells me she will happily do so. The mobile crisis team then informed me that since the patient was woken up, she might be "distressed", and there therefore as per their policy not able to perform an evaluation, and indicate that they will send someone later on in the morning, when the patient is awake, and not woken up from sleep. I did politely implore the mobile crisis team to please consider evaluating the patient in an expedient fashion, so as not to expose her to the risks of being in the emergency room, including communicable diseases such as Covid. However, the mobile crisis team is adamant that they cannot evaluate this patient, as per their policy, and this has been specifically relayed to them by their natural [employer] supervisor. Patient remains medically suitable and stable at this time for psychiatric/mobile crisis team evaluation, she does not have an emergent medical condition that has been identified at this time, abdomen is soft and benign on repeat examination, and she ate a meal without difficulty. Thus, patient will be placed on hold status, pending mobile crisis team/psychiatric/case management evaluation. - Pulse Oximetry Interpretation Digit-Finger Initial Pulse Oximetry Readin O2 Sat by Pulse Oximetry: 96 Actions Taken: none ED Medical Decision Making - Lab Data Result diagrams: 12/23/20 21:23 12/23/20 21:23 Lab Results 12/23/20 12/23/20 12/23/20 Range/Units 21:23 21:23 21:23 WBC 10.4 (4.5-11.0) K/mm3 RBC 4.90 (3.65-5.03) M/mm3 Hgb 11.8 (10.1-14.3) gm/dl Hct 36.6 (30.3-42.9) % MCV 75 L (79-97) fl MCH 24 L (28-32) pg MCHC 32 (30-34) % RDW 22.3 H (13.2-15.2) % Plt Count 192 (140-440) K/mm3 Lymph % (Auto) 27.5 (13.4-35.0) % [place] % (Auto) 7.4 H (0.0-7.3) % Eos % (Auto) 2.4 (0.0-4.3) % Baso % (Auto) 0.9 (0.0-1.8) % Lymph # (Auto) 2.9 (1.2-5.4) K/mm3 [place] # (Auto) 0.8 (0.0-0.8) K/mm3 Eos # (Auto) 0.2 (0.0-0.4) K/mm3 Baso # (Auto) 0.1 (0.0-0.1) K/mm3 Seg Neutrophils % 61.8 (40.0-70.0) % Seg Neutrophils # 6.4 (1.8-7.7) K/mm3 Sodium 138 (137-145) mmol/L Potassium 3.7 (3.6-5.0) mmol/L Chloride 100.8 (98-107) mmol/L Carbon Dioxide 23 (22-30) mmol/L Anion Gap 18 mmol/L BUN 8 (7-17) mg/dL Creatinine 0.5 L (0.6-1.2) mg/dL Estimated GFR > 60 ml/min BUN/Creatinine Ratio 16 % Glucose 79 (65-100) mg/dL Calcium 8.9 (8.4-10.2) mg/dL Magnesium 1.70 (1.7-2.3) mg/dL Total Creatine Kinase 82 (30-135) units/L HCG, Quant < 2 (0-4) mIU/mL Urine Color (Yellow) Urine Turbidity (Clear) Urine pH (5.0-7.0) Ur Specific [place] (1.003-1.030) Urine Protein (Negative) mg/dL Urine Glucose (UA) (Negative) mg/dL Urine Ketones (Negative) mg/dL Urine Blood (Negative) Urine Nitrite (Negative) Urine Bilirubin (Negative) Urine Urobilinogen (<2.0) mg/dL Ur Leukocyte Esterase (Negative) Urine WBC (Auto) (0.0-6.0) /HPF Urine RBC (Auto) (0.0-6.0) /HPF U Epithel Cells (Auto) (0-13.0) /HPF Urine Bacteria (Auto) (Negative) /HPF Urine Mucus /HPF Urine Yeast (Budding) /HPF Salicylates (2.8-20.0) mg/dL Urine Opiates Screen Urine Methadone Screen Acetaminophen (10.0-30.0) ug/mL Ur Barbiturates Screen Ur Phencyclidine Scrn Ur Amphetamines Screen U Benzodiazepines Scrn Urine Cocaine Screen U Marijuana (THC) Screen Drugs of Abuse Note Plasma/Serum Alcohol (0-0.07) % 12/23/20 12/23/20 12/23/20 Range/Units 21:23 21:23 21:23 WBC (4.5-11.0) K/mm3 RBC (3.65-5.03) M/mm3 Hgb (10.1-14.3) gm/dl Hct (30.3-42.9) % MCV (79-97) fl MCH (28-32) pg MCHC (30-34) % RDW (13.2-15.2) % Plt Count (140-440) K/mm3 Lymph % (Auto) (13.4-35.0) % [place] % (Auto) (0.0-7.3) % Eos % (Auto) (0.0-4.3) % Baso % (Auto) (0.0-1.8) % Lymph # (Auto) (1.2-5.4) K/mm3 [place] # (Auto) (0.0-0.8) K/mm3 Eos # (Auto) (0.0-0.4) K/mm3 Baso # (Auto) (0.0-0.1) K/mm3 Seg Neutrophils % (40.0-70.0) % Seg Neutrophils # (1.8-7.7) K/mm3 Sodium (137-145) mmol/L Potassium (3.6-5.0) mmol/L Chloride (98-107) mmol/L Carbon Dioxide (22-30) mmol/L Anion Gap mmol/L BUN (7-17) mg/dL Creatinine (0.6-1.2) mg/dL Estimated GFR ml/min BUN/Creatinine Ratio % Glucose (65-100) mg/dL Calcium (8.4-10.2) mg/dL Magnesium (1.7-2.3) mg/dL Total Creatine Kinase (30-135) units/L HCG, Quant (0-4) mIU/mL Urine Color (Yellow) Urine Turbidity (Clear) Urine pH (5.0-7.0) Ur Specific [place] (1.003-1.030) Urine Protein (Negative) mg/dL Urine Glucose (UA) (Negative) mg/dL Urine Ketones (Negative) mg/dL Urine Blood (Negative) Urine Nitrite (Negative) Urine Bilirubin (Negative) Urine Urobilinogen (<2.0) mg/dL Ur Leukocyte Esterase (Negative) Urine WBC (Auto) (0.0-6.0) /HPF Urine RBC (Auto) (0.0-6.0) /HPF U Epithel Cells (Auto) (0-13.0) /HPF Urine Bacteria (Auto) (Negative) /HPF Urine Mucus /HPF Urine Yeast (Budding) /HPF Salicylates < 0.3 L (2.8-20.0) mg/dL Urine Opiates Screen Urine Methadone Screen Acetaminophen 5.0 L (10.0-30.0) ug/mL Ur Barbiturates Screen Ur Phencyclidine Scrn Ur Amphetamines Screen U Benzodiazepines Scrn Urine Cocaine Screen U Marijuana (THC) Screen Drugs of Abuse Note Plasma/Serum Alcohol < 0.01 (0-0.07) % 12/23/20 12/23/20 Range/Units 21:36 21:36 WBC (4.5-11.0) K/mm3 RBC (3.65-5.03) M/mm3 Hgb (10.1-14.3) gm/dl Hct (30.3-42.9) % MCV (79-97) fl MCH (28-32) pg MCHC (30-34) % RDW (13.2-15.2) % Plt Count (140-440) K/mm3 Lymph % (Auto) (13.4-35.0) % [place] % (Auto) (0.0-7.3) % Eos % (Auto) (0.0-4.3) % Baso % (Auto) (0.0-1.8) % Lymph # (Auto) (1.2-5.4) K/mm3 [place] # (Auto) (0.0-0.8) K/mm3 Eos # (Auto) (0.0-0.4) K/mm3 Baso # (Auto) (0.0-0.1) K/mm3 Seg Neutrophils % (40.0-70.0) % Seg Neutrophils # (1.8-7.7) K/mm3 Sodium (137-145) mmol/L Potassium (3.6-5.0) mmol/L Chloride (98-107) mmol/L Carbon Dioxide (22-30) mmol/L Anion Gap mmol/L BUN (7-17) mg/dL Creatinine (0.6-1.2) mg/dL Estimated GFR ml/min BUN/Creatinine Ratio % Glucose (65-100) mg/dL Calcium (8.4-10.2) mg/dL Magnesium (1.7-2.3) mg/dL Total Creatine Kinase (30-135) units/L HCG, Quant (0-4) mIU/mL Urine Color Straw (Yellow) Urine Turbidity Slightly-cloudy (Clear) Urine pH 7.0 (5.0-7.0) Ur Specific [place] 1.006 (1.003-1.030) Urine Protein <15 mg/dl (Negative) mg/dL Urine Glucose (UA) Neg (Negative) mg/dL Urine Ketones Neg (Negative) mg/dL Urine Blood Neg (Negative) Urine Nitrite Neg (Negative) Urine Bilirubin Neg (Negative) Urine Urobilinogen < 2.0 (<2.0) mg/dL Ur Leukocyte Esterase Neg (Negative) Urine WBC (Auto) 1.0 (0.0-6.0) /HPF Urine RBC (Auto) 1.0 (0.0-6.0) /HPF U Epithel Cells (Auto) 13.0 (0-13.0) /HPF Urine Bacteria (Auto) 1+ (Negative) /HPF Urine Mucus Few /HPF Urine Yeast (Budding) Few /HPF Salicylates (2.8-20.0) mg/dL Urine Opiates Screen Negative Urine Methadone Screen Negative Acetaminophen (10.0-30.0) ug/mL Ur Barbiturates Screen Negative Ur Phencyclidine Scrn Negative Ur Amphetamines Screen Negative U Benzodiazepines Scrn Negative Urine Cocaine Screen Negative U Marijuana (THC) Screen Negative Drugs of Abuse Note Disclamer Plasma/Serum Alcohol (0-0.07) % Vital Signs 12/23/20 23:44 Temperature 97.5 F L Pulse Rate 81 Respiratory 18 Rate Blood Pressure 117/79 [Left] O2 Sat by Pulse 98 Oximetry - EKG Data -: EKG Interpreted by Id EKG shows normal: sinus rhythm Rate: normal - EKG Data 12/23/20 22:20 EKG interpreted at 21: 48 Sinus rhythm, tachycardia, 103 bpm. Normal axis, high left ventricular voltage, normal intervals, not a STEMI. - Radiology Data Radiology results: pending, report reviewed, image reviewed [facility] [address] [place] [address] Cat Scan Report Signed Patient: CHIQUIS LESLIE MR#: [id number] : 1980 Acct:[id number] Age/Sex: 40 / F ADM Date: 12/23/20 Loc: ED Attending Dr: Ordering Physician: CLARISSA BASS MD Date of Service: 12/23/20 Procedure(s): CT abdomen pelvis w con Accession Number(s): [id number] cc: CLARISSA BASS MD CT ABDOMEN AND PELVIS WITH CONTRAST INDICATION / CLINICAL INFORMATION: Pt complains of R.L.Q. abdominal pain. TECHNIQUE: Axial CT images were obtained through the abdomen and pelvis after 100 cc Omnipaque [address] scans at this location are performed using CT dose reduction for ALARA by means of automated exposure control. COMPARISON: None available. FINDINGS: LOWER CHEST: No significant abnormality. LIVER: No significant abnormality. GALLBLADDER: Contracted and not well evaluated. BILE DUCTS: No significant abnormality. PANCREAS: No significant abnormality. SPLEEN: No significant abnormality. ADRENALS: No significant abnormality. RIGHT KIDNEY / URETER: No significant abnormality. LEFT KIDNEY / URETER: No significant abnormality. STOMACH / SMALL BOWEL: No significant abnormality. COLON: No significant abnormality. APPENDIX: No significant abnormality. PERITONEUM: No free fluid. No free air. No fluid collection. LYMPH NODES: No significant adenopathy. AORTA / ARTERIES: No significant abnormality. IVC / VEINS: No significant abnormality. URINARY BLADDER: No significant abnormality. REPRODUCTIVE ORGANS: No significant abnormality. ADDITIONAL FINDINGS: None. SKELETAL SYSTEM: No significant abnormality. IMPRESSION: No acute abnormality is seen to explain the patient's pain. Signer Name: Blair Morejon MD Signed: 12/23/2020 11:06 PM Workstation Name: [id number] Transcribed By: [place] Dictated By: Blair Morejon MD Electronically Authenticated By: Blair Morejon MD Signed Date/Time: 12/23/202305 DD/ 01 [facility] [address] [place] [address] Cat Scan Report Signed Patient: CHIQUIS LESLIE MR#: [id number] : 1980 Acct:[id number] Age/Sex: 40 / F ADM Date: 12/23/20 Loc: ED Attending Dr: Ordering Physician: CLARISSA BASS MD Date of Service: 12/23/20 Procedure(s): CT head/brain wo con Accession Number(s): [id number] cc: CLARISSA BASS MD CT HEAD WITHOUT CONTRAST INDICATION : Pt complains of convulsive activity. TECHNIQUE: Axial, coronal and sagittal CT imaging was performed from the skull apex through the skull base without contrast. All CT scans at this location are performed using CT dose reduction for ALARA by means of automated exposure control. COMPARISON: None available. FINDINGS: PARENCHYMA: There is an ovoid nonspecific area of decreased attenuation located posteriorly along the right temporoparietal region near the posterior horn of the right lateral ventricle on image 13 of series 2 measuring 1.0 x 0.8 cm. No significant surrounding edema or mass effect is identified. No mass is visualized elsewhere. No hemorrhage or extra-axial collection. There are bilateral basal ganglial calcifications. VENTRICLES: Symmetric and normal in size. SOFT TISSUES: No significant abnormality of the included soft tissues/orbits. BONES: No acute osseous abnormality. SINUSES: No significant abnormality. ADDITIONAL FINDINGS: None. IMPRESSION: 1. Indeterminate area of decreased attenuation along the right temporoparietal region. An MRI of the brain without contrast would be helpful for further evaluation. 2. No other acute intracranial abnormality. Signer Name: Blair Morejon MD Signed: 12/23/2020 11:02 PM Workstation Name: [id number] Transcribed By: MN Dictated By: Blair Morejon MD Electronically Authenticated By: Blair Morejon MD Signed Date/Time: 12/23/202301 DD/ 715 Critical care attestation.: If time is entered above; I have spent that time in minutes in the direct care of this critically ill patient, excluding procedure time. ED Disposition Clinical Impression: History of convulsions, Lower abdominal pain, Medical clearance for psychiatric admission, Case management patient Disposition: DC-01 TO HOME OR SELFCARE Is pt being admited?: No Does the pt Need Aspirin: No Condition: Good Additional Instructions: OUTPATIENT MENTAL HEALTH RESOURCES [facility], [facility] Myla Feng [place]: [address] [place] [address] [place], [place] [id number] [place] [facility]: [employer] [address] [place] [address] [place] [address] [phone] [facility]: [facility]: [address] [facility] [address] [place] [id number] [facility] [id number] [facility]: Pedro Hudson MD: [id number] [facility] [address] [facility] [id number] [facility]: [address] [place] [address] [phone] [place] CRISIS AND ACCESS LINE: Referrals: PRIMARY CAREMD [Primary Care Provider] - 3-5 Days
[2020-12-23] MEDS ORDERED: LACTATED RINGERS 1,000 ML IV ONE (21:11)
[2020-12-23] MEDS ORDERED: diphenhydrAMINE 50 MG/ML VIAL IV ONE (21:11)
[2020-12-23] MEDS ORDERED: LORazepam 2 MG/ML VIAL IV ONE (21:11)
[2020-12-23] MEDS ORDERED: HALOPERIDOL LACTATE 5 MG/1 ML INJ IM ONE (21:11)
[2020-12-23] MEDS ORDERED: HALOPERIDOL LACTATE 5 MG/1 ML INJ IM PRN (21:37)
[2020-12-23] MEDS ORDERED: LORazepam 2 MG/ML VIAL IM PRN (21:37)
[2020-12-23 21:40] LABS: Basophils # (Auto) 0.1 K/mm3 (0.0-0.1); Basophils % (Auto) 0.9 % (0.0-1.8); Eosinophils # (Auto) 0.2 K/mm3 (0.0-0.4); Eosinophils % (Auto) 2.4 % (0.0-4.3); Hematocrit 36.6 % (30.3-42.9); Hemoglobin 11.8 gm/dl (10.1-14.3); Lymphocytes # (Auto) 2.9 K/mm3 (1.2-5.4); Lymphocytes % (Auto) 27.5 % (13.4-35.0); Mean Corpuscular HGB Conc 32 % (30-34); Mean Corpuscular Volume 75 fl (79-97); Monocytes # (Auto) 0.8 K/mm3 (0.0-0.8); Monocytes % (Auto) 7.4 % (0.0-7.3); Platelet Count 192 K/mm3 (140-440)
[2020-12-23 21:41] LABS: Red Cell Distribution Width 22.3 % (13.2-15.2)
[2020-12-23 21:47] LABS: Bacteria,Urine 1+ /HPF (Negative); Bilirubin,Urine NEG (Negative); Blood,Urine NEG (Negative); Color,Urine Straw (Yellow); Mucus,Urine FEW /HPF; Protein,Urine <15 mg/dL mg/dL (Negative); Urobilinogen,Urine < 2.0 mg/dL (<2.0)
[2020-12-23 21:53] LABS: Amphetamine Screen,Urine Negative; Benzodiazepines Screen,Urine Negative; Cannabinoid Screen,Urine Negative; Cocaine Screen,Urine Negative; Methadone Screen,Urine Negative; Opiate Screen,Urine Negative
[2020-12-23 21:55] LABS: BUN/Creatinine Ratio 16; Blood Urea Nitrogen 8 mg/dL (7-17); Calcium 8.9 mg/dL (8.4-10.2); Hemolysis Index 17
[2020-12-23] MEDS ORDERED: diphenhydrAMINE 25 MG CAP PO PRN (22:21)
[2020-12-23] MEDS ORDERED: ACETAMINOPHEN 325 MG TAB PO PRN (22:21)
--- NOTE | 2020-12-23 23:07 | Cat Scan Report ---
CT HEAD WITHOUT CONTRAST INDICATION : Pt complains of convulsive activity. TECHNIQUE: Axial, coronal and sagittal CT imaging was performed from the skull apex through the skul l base without contrast. All CT scans at this location are performed using CT dose reduction for ALA RA by means of automated exposure control. COMPARISON: None available. FINDINGS: PARENCHYMA: There is an ovoid nonspecific area of decreased attenuation located posteriorly along th e right temporoparietal region near the posterior horn of the right lateral ventricle on image 13 of series 2 measuring 1.0 x 0.8 cm. No significant surrounding edema or mass effect is identified. No ma ss is visualized elsewhere. No hemorrhage or extra-axial collection. There are bilateral basal gangli al calcifications. VENTRICLES: Symmetric and normal in size. SOFT TISSUES: No significant abnormality of the included soft tissues/orbits. BONES: No acute osseous abnormality. SINUSES: No significant abnormality. ADDITIONAL FINDINGS: None. IMPRESSION: 1. Indeterminate area of decreased attenuation along the right temporoparietal region. An MRI of the brain without contrast would be helpful for further evaluation. 2. No other acute intracranial abnormality. Signer Name: Blair Morejon MD Signed: 12/23/2020 11:02 PM Workstation Name: [id number]
--- NOTE | 2020-12-23 23:10 | Cat Scan Report ---
CT ABDOMEN AND PELVIS WITH CONTRAST INDICATION / CLINICAL INFORMATION: Pt complains of R.L.Q. abdominal pain. TECHNIQUE: Axial CT images were obtained through the abdomen and pelvis after 100 cc Omnipaque [address] scans at this location are performed using CT dose reduction for ALARA by means of automated exposure control. COMPARISON: None available. FINDINGS: LOWER CHEST: No significant abnormality. LIVER: No significant abnormality. GALLBLADDER: Contracted and not well evaluated. BILE DUCTS: No significant abnormality. PANCREAS: No significant abnormality. SPLEEN: No significant abnormality. ADRENALS: No significant abnormality. RIGHT KIDNEY / URETER: No significant abnormality. LEFT KIDNEY / URETER: No significant abnormality. STOMACH / SMALL BOWEL: No significant abnormality. COLON: No significant abnormality. APPENDIX: No significant abnormality. PERITONEUM: No free fluid. No free air. No fluid collection. LYMPH NODES: No significant adenopathy. AORTA / ARTERIES: No significant abnormality. IVC / VEINS: No significant abnormality. URINARY BLADDER: No significant abnormality. REPRODUCTIVE ORGANS: No significant abnormality. ADDITIONAL FINDINGS: None. SKELETAL SYSTEM: No significant abnormality. IMPRESSION: No acute abnormality is seen to explain the patient's pain. Signer Name: Blair Morejon MD Signed: 12/23/2020 11:06 PM Workstation Name: [id number]
[2020-12-24 08:17] VITALS: BP 110/60
[2020-12-24] MEDS ORDERED: CETIRIZINE 10 MG TAB PO SCH (10:00)
[2020-12-24] MEDS ORDERED: DIVALPROEX DR 500 MG TAB PO SCH (10:00)
[2020-12-24] MEDS ORDERED: LACOSAMIDE 100 MG TAB PO SCH (10:00)
[2020-12-24] MEDS ORDERED: NON-FORMULARY EACH (Loratadine [Allergy Relief] 10 MG Tablet) PO SCH (10:00)
[2020-12-24] MEDS ORDERED: NON-FORMULARY EACH (Lacosamide [Vimpat] 200 MG Tablet) PO SCH (10:00)
--- NOTE | 2020-12-24 10:06 | Consultation ---
History of Present Illness - Reason for Consult Consult date: 12/24/20 Reason for consult: hx of schizophrenia - History of Present Psychiatric Illness Per ER Note: This is a 40-year-old female. I have evaluated this patient in the past. Her past medical history includes asthma, schizoaffective disorder, bipolar disorder, seizure, developmental delay, neuropathy, obesity, chromosome 9P deletion. The patient is brought to the hospital by emergency medical services with a complaint of possible seizure-like activity. EMS reports to myself that the patient had normal vital signs and Accu-Chek in the field, and was having nonspecific shaking activity while awake. Upon arrival to the emergency room, the patient is awake, and her shaking activity has resolved. The patient insists that she does not live with her mother, and lives with her "doctor." The patient states she is not homicidal or suicidal, and she is not having hallucinations. She denies headache, but complains of lower abdominal pain. She states that she is not . The patient is disorganized and a poor historian, and not able to describe the qualitative nature of her symptoms, exacerbating, or relieving factors. Patient attempted to run away/eloped multiple times, and initially did not respond to verbal de-escalation techniques or show of force, and therefore required medication with haloperidol and Ativan, as well as code day being activated overhead. The patient was seen today, she is lying down awake. She is oriented x 3. She is lucid. The patient states she was brought here for having a seizure and "doesn't know why she's here today." She denies SI/HI. She says "I never told anybody I was having any of that." The patient denies hallucinations. She says "I have before but not now." She says she has a history of schizophrenia. The patient s ays she is on Depakote 1000, abilif 30 and trazodone 100. She says she is complaint with them and they "keep me stable." The patient also says she sees her psychiatrist regularly. The sitter caring for the patient today, states she has been calm, cooperative and has exhibited no A/V hallucinations. REVIEW OF SYSTEMS Constitutional: Negative for weight loss ENT: Negative for stridor Respiratory: Negative for cough or hemoptysis All other systems reviewed and are negative MENTAL STATUS EXAMINATION General Appearance and Behavior: Age appropriate, good hygiene, wearing appropriate clothes, good eye contact, cooperative polite with questioning. Cooperation: Participating/engaged Psychomotor Behavior: unremarkable and within normal limits Mood: Good Affect and affective range: congruent with mood Thought Process: Fluent/Logical, Thought Content: Within reality, Speech: Normal volume, Regular rate and rhythm, Intellectual Functioning: Average Suicidal Ideation: Denies SI Homicidal Ideation: Denies HI Hallucinations: Denies Delusions: None elicited Impulse Control: Unimpaired Insight and Judgment: Normal insight and judgment, Memory: Normal, Attention: Normal, Orientation: Alert, oriented, Assessment (1) Hx of Schizophrenia Current Visit: Yes Status: Acute Treatment Plan Continue previously prescribed meds Sitter: Per medical Medical: per primary Disposition: Do not recommend acute psychiatric inpatient treatment Will sign off Case staffed with Dr. Noel Medications and Allergies Allergies Allergy/AdvReac Type Severity Reaction Status Date / Time No Known Allergies Allergy Unverified 11/18/18 19:42 Home Medications Medication Instructions Recorded Confirmed Last Taken Type Divalproex Sodium [Depakote] 500 mg PO BID 11/19/18 08/15/19 Unknown History QUEtiapine [SEROquel] 200 mg PO QHS 11/19/18 08/15/19 Unknown History Donepezil HCl [Donepezil HCl Odt] 5 mg PO 08/15/19 Unknown History Gabapentin 300 08/15/19 Unknown History Lacosamide [Vimpat] 200 08/15/19 Unknown History Loratadine [Allergy Relief] 10 mg PO QDAY #30 tablet 11/05/20 Unknown Rx Active Meds: Active Medications Acetaminophen (Acetaminophen 325 Mg Tab) 650 mg PO Q6HR PRN PRN Reason: PAIN Cetirizine HCl (Cetirizine 10 Mg Tab) 10 mg PO QDAY VASQUEZ Diphenhydramine HCl (Diphenhydramine 25 Mg Cap) 50 mg PO QHS PRN PRN Reason: Insomnia Divalproex Sodium (Divalproex Dr 500 Mg Tab) 500 mg PO BID VASQUEZ Haloperidol Lactate (Haloperidol Lactate 5 Mg/1 Ml Inj) 5 mg IM Q6HR PRN PRN Reason: Agitation Last Admin: 12/23/20 21:44 Dose: 5 mg Documented by: Lacosamide (Lacosamide 100 Mg Tab) 200 mg PO QDAY VASQUEZ Lorazepam (Lorazepam 2 Mg/Ml Vial) 2 mg IM Q4HR PRN PRN Reason: Agitation Last Admin: 12/23/20 22:00 Dose: 2 mg Documented by: Mental Status Exam - Vital signs Last Vital Signs Temp 97.9 F 12/24/20 08:17 Pulse 80 12/24/20 08:17 Resp 20 12/24/20 08:17 BP 110/60 12/24/20 08:17 Pulse Ox 98 12/24/20 08:17 Results Result Diagrams: 12/23/20 21:23 12/23/20 21:23 Abnormal lab results 12/23/20 12/23/20 12/23/20 Range/Units 21:23 21:23 21:23 MCV 75 L (79-97) fl MCH 24 L (28-32) pg RDW 22.3 H (13.2-15.2) % [place] % (Auto) 7.4 H (0.0-7.3) % Creatinine 0.5 L (0.6-1.2) mg/dL Salicylates < 0.3 L (2.8-20.0) mg/dL Acetaminophen (10.0-30.0) ug/mL Valproic Acid (50-100) ug/mL 12/23/20 12/23/20 Range/Units 21:23 21:23 MCV (79-97) fl MCH (28-32) pg RDW (13.2-15.2) % [place] % (Auto) (0.0-7.3) % Creatinine (0.6-1.2) mg/dL Salicylates (2.8-20.0) mg/dL Acetaminophen 5.0 L (10.0-30.0) ug/mL Valproic Acid 21.1 L (50-100) ug/mL All other labs normal.
--- NOTE | 2020-12-24 10:51 | Electrocardiograph Report ---
[facility] Test Date: 2020-12-23 Test Time: 21:48:21 Pat Name: CHIQUIS LESLIE Department: Room: Gender: F Knot Bumper: AMY : 1980 Requested By: CLARISSA BASS Order Number: [id number] Reading MD: Armond Dey Measurements Intervals [place] Rate: 103 P: 65 LA: 130 QRS: 11 QRSD: 77 T: 40 QT: 326 QTc: 427 Interpretive Statements Sinus tachycardia No previous ECG available for comparison Electronically Signed On 12-24-2020 10:51:35 EDT by Armond Dey
== END 2020-12-24 11:46 | disposition home or self-care (01) ==
LOC: ED 20:59
DX: R10.30 Lower abdominal pain, unspecified (principal); F25.0 Schizoaffective disorder, bipolar type; J45.909 Unspecified asthma, uncomplicated; F03.90 Unspecified dementia, unspecified severity, without behavioral disturbance, psychotic disturbance, mood disturbance, and anxiety; G40.909 Epilepsy, unspecified, not intractable, without status epilepticus; F17.200 Nicotine dependence, unspecified, uncomplicated; Z20.822 Contact with and (suspected) exposure to COVID-19; Z98.51 Tubal ligation status; Z79.899 Other long term (current) drug therapy; Z87.898 Personal history of other specified conditions; Z00.8 Encounter for other general examination; Z71.89 Other specified counseling
CPT/HCPCS: 36415; 70450; 74177; 80048; 80164; 80307; 81001; 82550; 83735; 84702; 85025; 93005; 96361; 96372; 96374; 99285; J1200; J1630; J2060; J7120; Q9967; U0003; 80320; G0480

== ENCOUNTER 2021-01-09 14:58 | Emergency (ER) | payer MEDICAID ==
[2021-01-09 16:31] VITALS: BP 127/73
[2021-01-09] MEDS ORDERED: levETIRAcetam 1000 MG/NS 0.75% 1,000 MG/100 ML BAG IV ONE (16:35)
[2021-01-09 17:18] LABS: Basophils # (Auto) 0.1 K/mm3 (0.0-0.1); Eosinophils # (Auto) 0.1 K/mm3 (0.0-0.4); Eosinophils % (Auto) 1.2 % (0.0-4.3); Hematocrit 34.6 % (30.3-42.9); Hemoglobin 10.9 gm/dl (10.1-14.3); Lymphocytes # (Auto) 2.7 K/mm3 (1.2-5.4); Lymphocytes % (Auto) 33.5 % (13.4-35.0); Mean Corpuscular HGB Conc 32 % (30-34); Mean Corpuscular Volume 77 fl (79-97); Monocytes # (Auto) 0.5 K/mm3 (0.0-0.8); Platelet Count 213 K/mm3 (140-440); Red Blood Count 4.52 M/mm3 (3.65-5.03)
[2021-01-09 17:19] LABS: Red Cell Distribution Width 22.2 % (13.2-15.2)
[2021-01-09] MEDS ORDERED: levETIRAcetam 500 MG TAB PO ONE (17:23)
[2021-01-09 17:37] LABS: Alanine Aminotransferase 8 units/L (7-56); Albumin 3.8 g/dL (3.9-5); Blood Urea Nitrogen 7 mg/dL (7-17); Calcium 8.6 mg/dL (8.4-10.2); Hemolysis Index 4
[2021-01-09 17:38] LABS: BUN/Creatinine Ratio 14
== END 2021-01-09 17:48 | disposition home or self-care (01) ==
LOC: ED 14:58
DX: R56.9 Unspecified convulsions (principal); J45.909 Unspecified asthma, uncomplicated; F03.90 Unspecified dementia, unspecified severity, without behavioral disturbance, psychotic disturbance, mood disturbance, and anxiety; F31.9 Bipolar disorder, unspecified; F17.200 Nicotine dependence, unspecified, uncomplicated; Z98.890 Other specified postprocedural states; Z79.899 Other long term (current) drug therapy
CPT/HCPCS: 36415; 80053; 85025; J1953

== ENCOUNTER 2021-06-12 20:10 | Emergency (ER) | payer MEDICAID ==
[2021-06-12 20:18] VITALS: BP 130/78
--- NOTE | 2021-06-12 20:21 | Emergency Department Report ---
Minor Respiratory - HPI Stated Complaint: COUGH/CHILLS/BODY ACHES/CHEST PAIN/RUNNY NOSE Time Seen by Provider: 06/12/21 20:17 Minor Respiratory: Yes Rhinorrhea, Yes Able to Tolerate Fluids, No Sore Throat, No Ear Pain, No Cough, No Sick Contacts, No Hemoptysis, No Chest Pain, No Shortness of Breath, No Fever Other History: 40-year-old morbid obese -Beninese female presents to the emergency room for 1 day history of runny nose and cold-like symptoms. Patient states that she has not taken anything for her symptoms. She reports she has a history of asthma and did use her pump. She denies any fever chills no nausea no vomiting. Admits to diarrhea. Has been vaccinated for Covid. ED Review of Systems ROS: Stated complaint: COUGH/CHILLS/BODY ACHES/CHEST PAIN/RUNNY NOSE Other details as noted in HPI ED Past Medical Hx - Past Medical History Hx Seizures: Yes Hx Psychiatric Treatment: Yes (schizoaffective, bipolar) Hx Asthma: Yes Hx Dementia: Yes Additional medical history: developmental delay, chromosone 9p deletion, neuropathy - Surgical History Additional Surgical History: tubal ligation, bladder x 2 - Social History Smoking Status: Current Every Day Smoker Substance Use Type: None - Medications Home Medications: Home Medications Medication Instructions Recorded Confirmed Last Taken Type Divalproex Sodium [Depakote] 500 mg PO BID 11/19/18 08/15/19 Unknown History QUEtiapine [SEROquel] 200 mg PO QHS 11/19/18 08/15/19 Unknown History Donepezil HCl [Donepezil HCl Odt] 5 mg PO 08/15/19 Unknown History Gabapentin 300 08/15/19 Unknown History Lacosamide [Vimpat] 200 08/15/19 Unknown History Loratadine [Allergy Relief] 10 mg PO QDAY #30 tablet 11/05/20 Unknown Rx Prednisone [predniSONE 5 mg (6-Day 5 mg PO .TAPER #1 tab.ds.pk 06/12/21 Unknown Rx Pack, 21 Tabs)] Promethazine Dm (Nf) [Phenergan DM 5 ml PO Q6H PRN #110 06/12/21 Unknown Rx 6.25-15 mg/5 ml] Minor Respiratory Exam - Exam General: Vital signs noted. No distress. Alert and acting appropriately. HEENT: Yes Moist Mucous Membranes, Yes Rhinorrhea Neck: Yes Supple, No Adenopathy Lungs: Yes Good Air Exchange, No Wheezes, No Ronchi, No Stridor, No Cough, No Labored Respirations, No Retractions, No Use of Accessory Muscles, No Other Abnormal Lung Sounds Heart: Yes Regular, No Murmur Abdomen: Yes Normal Bowel Sounds, No Tenderness, No Peritoneal Signs Skin: No Rash, No Edema Neurologic: Alert and oriented, no deficits. Musculoskeletal: Unremarkable. ED Medical Decision Making - Medical Decision Making 40-year-old morbid obese -Beninese female presents to the emergency room for 1 day history of runny nose and cold-like symptoms. Patient states that she has not taken anything for her symptoms. She reports she has a history of asthma and did use her pump. She denies any fever chills no nausea no vomiting. Admits to diarrhea. Has been vaccinated for Covid. Patient is no acute distress some mild rhonchus on the left lower lung. Patient be discharged home on prednisone and encouraged to continue with her nebulizer treatments. Patient is satting at 97% on room air. Patient also take [id number] Delsym or Robitussin. Critical care attestation.: If time is entered above; I have spent that time in minutes in the direct care of this critically ill patient, excluding procedure time. ED Disposition Clinical Impression: URI, acute Disposition: 01 HOME / SELF CARE / HOMELESS Is pt being admited?: No Does the pt Need Aspirin: No Condition: Stable Instructions: Viral Respiratory Infection, [id number] Additional Instructions: Please complete prednisone as prescribed take cough medication as needed. Continue to use your nebulizer and inhaler as needed. Follow-up with your primary care provider. Prescriptions: Promethazine Dm (Nf) [Phenergan DM 6.25-15 mg/5 ml] 5 ml PO Q6H PRN #110 PRN Reason: Cough Prednisone [predniSONE 5 mg (6-Day Pack, 21 Tabs)] 5 mg PO .TAPER #1 tab.ds.pk Referrals: Your, primary care provider [Other] - 3-5 Days Forms: Work/School Release Form(ED) Time of Disposition: 20:22
== END 2021-06-12 21:06 | disposition home or self-care (01) ==
LOC: ED 20:10
DX: J06.9 Acute upper respiratory infection, unspecified (principal); R56.9 Unspecified convulsions; F31.9 Bipolar disorder, unspecified; J45.909 Unspecified asthma, uncomplicated; F17.200 Nicotine dependence, unspecified, uncomplicated
CPT/HCPCS: 99282

== ENCOUNTER 2021-11-26 23:50 | Emergency (ER) | payer MEDICAID ==
[2021-11-27] MEDS ORDERED: ZIPRASIDONE MESYLATE 20 MG VIAL IM ONE (00:04)
[2021-11-27] MEDS ORDERED: LORazepam 2 MG/ML VIAL IM ONE (00:32)
--- NOTE | 2021-11-27 00:46 | Emergency Department Report ---
ED Psych HPI - General Chief Complaint: Psych Stated Complaint: MH Time Seen by Provider: 11/27/21 00:41 Source: EMS Mode of arrival: Stretcher - History of Present Illness Initial Comments: Patient is 41 years old female with history of bipolar disorder and Down syndrome. Patient brought to the emergency room via EMS restraint for mental health evaluation. EMS reported that [facility] after patient became very agitated and trying to run into traffic. Upon arrival to the ER patient is talking to herself in a loud voice. Patient receiv ed Odilon and Edgar in the ER for chemical restraint. Unable to obtain further information from the patient at this moment. MD Complaint: altered mental status - Related Data Home Medications Medication Instructions Recorded Confirmed Last Taken Divalproex Sodium [Depakote] 500 mg PO BID 11/19/18 08/15/19 Unknown QUEtiapine [SEROquel] 200 mg PO QHS 11/19/18 08/15/19 Unknown Donepezil HCl [Donepezil HCl Odt] 5 mg PO 08/15/19 Unknown Gabapentin 300 08/15/19 Unknown Lacosamide [Vimpat] 200 08/15/19 Unknown Previous Rx's Medication Instructions Recorded Last Taken Type Loratadine [Allergy Relief] 10 mg PO QDAY #30 tablet 11/05/20 Unknown Rx Prednisone [predniSONE 5 mg (6-Day 5 mg PO .TAPER #1 tab.ds.pk 06/12/21 Unknown Rx Pack, 21 Tabs)] Promethazine Dm (Nf) [Phenergan DM 5 ml PO Q6H PRN #110 06/12/21 Unknown Rx 6.25-15 mg/5 ml] Doxepin [SINEquan] 10 mg PO QHS #30 capsule 11/28/21 Unknown Rx risperiDONE [RisperDAL] 0.5 mg PO BID #60 11/28/21 Unknown Rx Allergies Allergy/AdvReac Type Severity Reaction Status Date / Time No Known Allergies Allergy Verified 11/27/21 23:41 ED Review of Systems ROS: Stated complaint: MH Other details as noted in HPI Comment: Unobtainable due to pts medical conditions ED Past Medical Hx - Past Medical History Previous Medical History?: Yes Hx Hypertension: Yes Hx Seizures: Yes Hx Psychiatric Treatment: Yes (schizoaffective, bipolar) Hx Asthma: Yes Hx Dementia: Yes Additional medical history: developmental delay, chromosone 9p deletion, neuropathy - Surgical History Past Surgical History?: Yes Additional Surgical History: tubal ligation, bladder x 2 - Social History Smoking Status: Current Every Day Smoker Substance Use Type: None - Medications Home Medications: Home Medications Medication Instructions Recorded Confirmed Last Taken Type Divalproex Sodium [Depakote] 500 mg PO BID 11/19/18 08/15/19 Unknown History QUEtiapine [SEROquel] 200 mg PO QHS 11/19/18 08/15/19 Unknown History Donepezil HCl [Donepezil HCl Odt] 5 mg PO 08/15/19 Unknown History Gabapentin 300 08/15/19 Unknown History Lacosamide [Vimpat] 200 08/15/19 Unknown History Loratadine [Allergy Relief] 10 mg PO QDAY #30 tablet 11/05/20 Unknown Rx Prednisone [predniSONE 5 mg (6-Day 5 mg PO .TAPER #1 tab.ds.pk 06/12/21 Unknown Rx Pack, 21 Tabs)] Promethazine Dm (Nf) [Phenergan DM 5 ml PO Q6H PRN #110 06/12/21 Unknown Rx 6.25-15 mg/5 ml] Doxepin [SINEquan] 10 mg PO QHS #30 capsule 11/28/21 Unknown Rx risperiDONE [RisperDAL] 0.5 mg PO BID #60 11/28/21 Unknown Rx ED Physical Exam - General Limitations: No Limitations General appearance: alert, other (agitated) - Head Head exam: Present: atraumatic, normocephalic, normal inspection - Eye Eye exam: Present: normal appearance - ENT ENT exam: Present: normal exam, normal orophraynx, mucous membranes moist - Neck Neck exam: Present: normal inspection, full ROM. Absent: tenderness, meningismus - Respiratory Respiratory exam: Present: normal lung sounds bilaterally - Cardiovascular Cardiovascular Exam: Present: regular rate, normal rhythm, normal heart sounds - GI/Abdominal GI/Abdominal exam: Present: soft, normal bowel sounds. Absent: distended, tenderness, guarding, rebound, rigid, mass, bruit (Hyperglycemia is), pulsatile mass, hernia - Extremities Exam Extremities exam: Present: normal inspection, full ROM, normal capillary refill. Absent: tenderness, pedal edema, joint swelling, calf tenderness - Back Exam Back exam: Present: normal inspection, full ROM. Absent: CVA tenderness (R), CVA tenderness (L) - Neurological Exam Neurological exam: Present: alert, oriented X3, CN II-XII intact, normal gait, reflexes normal. Absent: motor sensory deficit - Psychiatric Psychiatric exam: Present: normal mood, agitated, manic - Skin Skin exam: Present: warm, intact, normal color ED Course Vital Signs 11/27/21 11/27/21 11/27/21 00:17 00:41 20:20 Temperature 98 F 98.5 F Pulse Rate 110 H 96 H Respiratory 18 16 Rate Blood Pressure 162/78 Blood Pressure 128/70 [Right] O2 Sat by Pulse 100 100 97 Oximetry 11/28/21 09:08 Temperature 98.5 F Pulse Rate 92 H Respiratory 18 Rate Blood Pressure Blood Pressure 102/65 [Right] O2 Sat by Pulse 97 Oximetry ED Medical Decision Making - Lab Data Result diagrams: 11/27/21 01:14 11/27/21 01:14 Critical care attestation.: If time is entered above; I have spent that time in minutes in the direct care of this critically ill patient, excluding procedure time. ED Disposition Clinical Impression: Bipolar disorder Disposition: 01 HOME / SELF CARE / HOMELESS Is pt being admited?: No Condition: Stable Additional Instructions: Professional and Agency Contacts To help [facility] Crises(26/02) [place] Crisis Line: Suicide Prevention Line: Crisis Text Line: Text START to [phone] Emergency: 911 Outpatient COMMUNITY Behavioral Health Resources: [place]: [facility] [address] [place], [place] [address] [address] [facility] - [address] [place] [address] Sunday thru Sunday - 8am - 5pm [place]: [facility] Service Address: [address], [place] [address] [facility] Address: [address] [place] [id number] Sunday thru Sunday- 7am-2pm [facility] Address: [address], [place] [address] Sunday thru Sunday: 8:30AM-5PM OUTPATIENT MENTAL HEALTH RESOURCES [facility], [address], [place] [address] [facility] Myla Toney MD: [address] [place], [place] [id number] [facility]: [address] [place] [address] [place] [address] [phone] [facility]: [address] [facility] [address] [place] [address] [facility]: [address] [facility] [address] [facility] [id number] [facility]: [address] [place] [address] Pedro Hudson MD: [address] [facility] [id number] [facility]: [address] [facility] [place], [place] [id number] [phone] [place] CRISIS AND ACCESS LINE: * Prescriptions: Doxepin [SINEquan] 10 mg PO QHS #30 capsule risperiDONE [RisperDAL] 0.5 mg PO BID #60 Referrals: ENMANUEL SALGADO MD [Primary Care Provider] - 3-5 Days
[2021-11-27 01:51] LABS: Basophils # (Auto) 0.1 K/mm3 (0.0-0.1); Basophils % (Auto) 1.2 % (0.0-1.8); Eosinophils # (Auto) 0.1 K/mm3 (0.0-0.4); Eosinophils % (Auto) 0.9 % (0.0-4.3); Hematocrit 37.6 % (30.3-42.9); Hemoglobin 11.9 gm/dl (10.1-14.3); Lymphocytes # (Auto) 2.6 K/mm3 (1.2-5.4); Mean Corpuscular HGB Conc 32 % (30-34); Mean Corpuscular Volume 77 fl (79-97); Monocytes # (Auto) 1.4 K/mm3 (0.0-0.8); Monocytes % (Auto) 12.7 % (0.0-7.3); Platelet Count 264 K/mm3 (140-440); Red Blood Count 4.88 M/mm3 (3.65-5.03)
[2021-11-27 01:56] LABS: Red Cell Distribution Width 20.5 % (13.2-15.2)
[2021-11-27 01:57] LABS: Blood Urea Nitrogen 13 mg/dL (7-17); Calcium 8.8 mg/dL (8.4-10.2); Hemolysis Index 17
[2021-11-27 01:58] LABS: BUN/Creatinine Ratio 19
--- NOTE | 2021-11-27 08:58 | Consultation ---
History of Present Illness - Reason for Consult Consult date: 11/27/21 Reason for consult: agitation - History of Present Psychiatric Illness HPI: Patient is 41 years old female with history of bipolar disorder and Down syndrome. Patient brought to the emergency room via EMS restraint for mental health evaluation. EMS reported that [facility] after patient became very agitated and trying to run into traffic. Upon a rrival to the ER patient is talking to herself in a loud voice. Patient received Geodon and Ativan in the ER for chemical restraint. Unable to obtain further information from the patient at this moment. The patient was seen today. I was unable to arouse her for the evaluation due to her being medicated. She'd open her eyes then go back out. Will start prn med and risperidone for agitation and hallucinations, and continue to follow this patient. PAST PSYCHIATRIC HISTORY: Unable to assess PAST MEDICAL HISTORY: None reported or document Family Psychiatric History: None reported or documented SOCIAL HISTORY Unable to assess REVIEW OF SYSTEMS Unable to assess MENTAL STATUS EXAMINATION Unable to assess Diagnoses: Bipolar Disorder Treatment Plan 1013 Geodon 20mg IM q4h prn agitation Risperidone 0.5mg po BID Doxepin 10mg po qhs PSYCHOTHERAPY: Supportive psychotherapy provided MEDICAL: Per primary team DELIRIUM PRECAUTIONS: Please re-orient patient frequently, keep lights on during the day, and minimize benzodiazepines and opiates as these medications could worsen patient's confusion. HOUSEKEEPING CLEANER: Per medical team DISPOSITION: recommend acute psychiatric inpatient treatment Will follow. Thanks. Thank you for the consult. Case staffed with Dr. Noel Medications and Allergies Allergies Allergy/AdvReac Type Severity Reaction Status Date / Time No Known Allergies Allergy Verified 01/09/21 15:47 Home Medications Medication Instructions Recorded Confirmed Last Taken Type Divalproex Sodium [Depakote] 500 mg PO BID 11/19/18 08/15/19 Unknown History QUEtiapine [SEROquel] 200 mg PO QHS 11/19/18 08/15/19 Unknown History Donepezil HCl [Donepezil HCl Odt] 5 mg PO 08/15/19 Unknown History Gabapentin 300 08/15/19 Unknown History Lacosamide [Vimpat] 200 08/15/19 Unknown History Loratadine [Allergy Relief] 10 mg PO QDAY #30 tablet 11/05/20 Unknown Rx Prednisone [predniSONE 5 mg (6-Day 5 mg PO .TAPER #1 tab.ds.pk 06/12/21 Unknown Rx Pack, 21 Tabs)] Promethazine Dm (Nf) [Phenergan DM 5 ml PO Q6H PRN #110 06/12/21 Unknown Rx 6.25-15 mg/5 ml] Mental Status Exam - Vital signs Last Vital Signs Temp 98 F 11/27/21 00:17 Pulse 110 H 11/27/21 00:17 Resp 18 11/27/21 00:17 BP 162/78 11/27/21 00:17 Pulse Ox 100 11/27/21 00:41 Results Result Diagrams: 11/27/21 01:14 11/27/21 01:14 Abnormal lab results 11/27/21 11/27/21 11/27/21 Range/Units 01:14 01:14 01:14 WBC 11.3 H (4.5-11.0) K/mm3 MCV 77 L (79-97) fl MCH 24 L (28-32) pg RDW 20.5 H (13.2-15.2) % [place] % (Auto) 12.7 H (0.0-7.3) % [place] # (Auto) 1.4 H (0.0-0.8) K/mm3 Carbon Dioxide 21 L (22-30) mmol/L Glucose 116 H (65-100) mg/dL Salicylates < 0.3 L (2.8-20.0) mg/dL Acetaminophen (10.0-30.0) ug/mL 11/27/21 Range/Units 01:14 WBC (4.5-11.0) K/mm3 MCV (79-97) fl MCH (28-32) pg RDW (13.2-15.2) % [place] % (Auto) (0.0-7.3) % [place] # (Auto) (0.0-0.8) K/mm3 Carbon Dioxide (22-30) mmol/L Glucose (65-100) mg/dL Salicylates (2.8-20.0) mg/dL Acetaminophen 5.0 L (10.0-30.0) ug/mL All other labs normal.
[2021-11-27] MEDS ORDERED: ZIPRASIDONE MESYLATE 20 MG VIAL IM PRN (09:00)
[2021-11-27] MEDS: risperiDONE 0.25 MG TAB PO SCH ×3 (18:59→23:36)
[2021-11-27] MEDS: DOXEPIN 10 MG CAP PO SCH ×2 (22:46→23:36)
[2021-11-28 09:09] VITALS: BP 102/65
[2021-11-28] MEDS: risperiDONE 0.25 MG TAB PO SCH (10:40)
--- NOTE | 2021-11-28 11:01 | Progress Note ---
Subjective - Reason for Consult Consult date: 11/28/21 Reason for consult: agitation - Chief Complaint Chief complaint: The patient was seen today. She is awake and talking today. She is calm and cooperative. The patent says she "was having some issues." She says "I feel alright now." She says "I had some rest. I didn't get any rest before. I feel better with rest." She denies SI/HI or hallucinations of any kind. REVIEW OF SYSTEMS Constitutional: Negative for weight loss ENT: Negative for stridor Respiratory: Negative for cough or hemoptysis All other systems reviewed and are negative MENTAL STATUS EXAMINATION General Appearance and Behavior: Age appropriate, good hygiene, wearing appropriate clothes, good eye contact, calm, cooperative Cooperation: Participating/engaged, but Guarded Psychomotor Behavior: Psychomotor normal Mood: better Affect and affective range: congruent Thought Process: Goal directed Thought Content: Reality oriented Speech: normal tone and pace Suicidal Ideation: Denies Homicidal Ideation: Denies Hallucinations: Denies Delusions: None elicited Impulse Control: Limited Insight and Judgment: Limited insight and judgment Memory: Limited Attention: attentive Orientation: Alert, oriented Diagnoses: Bipolar Disorder Treatment Plan d/c 1013 Risperidone 0.5mg po BID Doxepin 10mg po qhs PSYCHOTHERAPY: Supportive psychotherapy provided MEDICAL: Per primary team DELIRIUM PRECAUTIONS: Please re-orient patient frequently, keep lights on during the day, and minimize benzodiazepines and opiates as these medications could worsen patient's confusion. [employer]OL AND [employer]: Per medical team DISPOSITION: Do not recommend acute psychiatric inpatient treatment The assessors to give the patient all necessary resources The patient to follow up with outpatient psych in 7 to 14 days upon discharge Will sign off. Thanks. Case staffed with Dr. Noel Mental Status Exam - Vital signs Last Vital Signs Temp 98.5 F 11/28/21 09:08 Pulse 92 H 11/28/21 09:08 Resp 18 11/28/21 09:08 BP 102/65 11/28/21 09:08 Pulse Ox 97 11/28/21 09:08
== END 2021-11-28 12:51 | disposition home or self-care (01) ==
LOC: ED 23:50
DX: F31.9 Bipolar disorder, unspecified (principal); I10 Essential (primary) hypertension; R56.9 Unspecified convulsions; F03.90 Unspecified dementia, unspecified severity, without behavioral disturbance, psychotic disturbance, mood disturbance, and anxiety; Z98.890 Other specified postprocedural states; Z79.899 Other long term (current) drug therapy; F17.200 Nicotine dependence, unspecified, uncomplicated; Z20.822 Contact with and (suspected) exposure to COVID-19
CPT/HCPCS: 36415; 80048; 84703; 85025; 96372; 99284; J2060; J3486; U0003; 80320; G0480

== ENCOUNTER 2022-03-13 02:43 | Emergency (ER) | payer MEDICAID ==
[2022-03-13] MEDS ORDERED: ZIPRASIDONE MESYLATE 20 MG VIAL IM ONE ×4 (02:52→21:04)
--- NOTE | 2022-03-13 03:07 | Emergency Department Report ---
ED General Adult HPI - General Stated complaint: MEDICAL CLEARANCE PUI?: No Time Seen by Provider: 03/13/22 03:04 Source: patient Limitations: Other (agitation) - History of Present Illness Initial comments: pt was brught in from [facility] under 1013 , for evaluation for agitation and OD possibility at the psych facility -: unknown Radiation: non-radiation Improves with: none Worsens with: none Associated Symptoms: denies: denies other symptoms, confusion, chest pain - Related Data Home Medications Medication Instructions Recorded Confirmed Last Taken Divalproex Sodium [Depakote] 500 mg PO BID 11/19/18 08/15/19 Unknown QUEtiapine [SEROquel] 200 mg PO QHS 11/19/18 08/15/19 Unknown Donepezil HCl [Donepezil HCl Odt] 5 mg PO 08/15/19 Unknown Gabapentin 300 08/15/19 Unknown Lacosamide [Vimpat] 200 08/15/19 Unknown Previous Rx's Medication Instructions Recorded Last Taken Type Loratadine [Allergy Relief] 10 mg PO QDAY #30 tablet 11/05/20 Unknown Rx Prednisone [predniSONE 5 mg (6-Day 5 mg PO .TAPER #1 tab.ds.pk 06/12/21 Unknown Rx Pack, 21 Tabs)] Promethazine Dm (Nf) [Phenergan DM 5 ml PO Q6H PRN #110 06/12/21 Unknown Rx 6.25-15 mg/5 ml] Doxepin [SINEquan] 10 mg PO QHS #30 capsule 11/28/21 Unknown Rx risperiDONE [RisperDAL] 0.5 mg PO BID #60 11/28/21 Unknown Rx risperiDONE [RisperDAL] 1 mg PO BID 30 Days #60 03/14/22 Unknown Rx Allergies Allergy/AdvReac Type Severity Reaction Status Date / Time No Known Allergies Allergy Verified 03/13/22 05:24 ED Review of Systems ROS: Stated complaint: MEDICAL CLEARANCE Other details as noted in HPI Constitutional: denies: chills, fever Eyes: denies: eye pain, eye discharge, vision change ENT: denies: ear pain, throat pain Respiratory: denies: cough, shortness of breath, wheezing Cardiovascular: denies: chest pain, palpitations Endocrine: no symptoms reported Gastrointestinal: denies: abdominal pain, nausea, diarrhea Genitourinary: denies: urgency, dysuria, discharge Musculoskeletal: denies: back pain, joint swelling, arthralgia Skin: denies: rash, lesions Neurological: denies: headache, weakness, paresthesias Psychiatric: denies: anxiety, depression Hematological/Lymphatic: denies: easy bleeding, easy bruising ED Past Medical Hx - Past Medical History Hx Hypertension: Yes Hx Seizures: Yes Hx Psychiatric Treatment: Yes (schizoaffective, bipolar) Hx Asthma: Yes Hx Dementia: Yes Additional medical history: developmental delay, chromosone 9p deletion, neuropathy - Surgical History Additional Surgical History: tubal ligation, bladder x 2 - Social History Smoking Status: Current Every Day Smoker Substance Use Type: None - Medications Home Medications: Home Medications Medication Instructions Recorded Confirmed Last Taken Type Divalproex Sodium [Depakote] 500 mg PO BID 11/19/18 08/15/19 Unknown History QUEtiapine [SEROquel] 200 mg PO QHS 11/19/18 08/15/19 Unknown History Donepezil HCl [Donepezil HCl Odt] 5 mg PO 08/15/19 Unknown History Gabapentin 300 08/15/19 Unknown History Lacosamide [Vimpat] 200 08/15/19 Unknown History Loratadine [Allergy Relief] 10 mg PO QDAY #30 tablet 11/05/20 Unknown Rx Prednisone [predniSONE 5 mg (6-Day 5 mg PO .TAPER #1 tab.ds.pk 06/12/21 Unknown Rx Pack, 21 Tabs)] Promethazine Dm (Nf) [Phenergan DM 5 ml PO Q6H PRN #110 06/12/21 Unknown Rx 6.25-15 mg/5 ml] Doxepin [SINEquan] 10 mg PO QHS #30 capsule 11/28/21 Unknown Rx risperiDONE [RisperDAL] 0.5 mg PO BID #60 11/28/21 Unknown Rx risperiDONE [RisperDAL] 1 mg PO BID 30 Days #60 03/14/22 Unknown Rx ED Physical Exam - General General appearance: alert, anxious - Head Head exam: Present: atraumatic, normocephalic - Eye Eye exam: Present: normal appearance - ENT ENT exam: Present: mucous membranes moist - Neck Neck exam: Present: normal inspection - Respiratory Respiratory exam: Present: normal lung sounds bilaterally. Absent: respiratory distress - Cardiovascular Cardiovascular Exam: Present: regular rate, normal rhythm. Absent: systolic murmur, diastolic murmur, rubs, gallop - GI/Abdominal GI/Abdominal exam: Present: soft, normal bowel sounds - Extremities Exam Extremities exam: Present: normal inspection - Back Exam Back exam: Present: normal inspection - Neurological Exam Neurological exam: Present: alert, oriented X3 - Psychiatric Psychiatric exam: Present: agitated, anxious - Skin Skin exam: Present: warm, dry, intact, normal color. Absent: rash ED Course Vital Signs 03/13/22 03/13/22 03/14/22 09:47 09:48 09:17 Temperature 97.9 F 98.6 F Pulse Rate 66 62 Respiratory 16 16 Rate Blood Pressure 144/99 107/61 [Left] O2 Sat by Pulse 97 97 97 Oximetry ED Medical Decision Making - Lab Data Result diagrams: 03/13/22 03:14 03/13/22 03:14 Critical care attestation.: If time is entered above; I have spent that time in minutes in the direct care of this critically ill patient, excluding procedure time. ED Disposition Clinical Impression: Agitation Disposition: 01 HOME / SELF CARE / HOMELESS Is pt being admited?: No Does the pt Need Aspirin: No Condition: Stable Instructions: Dysphoria Additional Instructions: Professional and Agency Contacts To help [facility](26/02) [place] Crisis Line: Suicide Prevention Line: Crisis Text Line: Text START to [phone] Emergency: 911 Outpatient COMMUNITY Behavioral Health Resources: [place]: [facility] [address] [place], [place] [address] [address] [place]: [facility] - [address] [place] [address] Sunday thru Sunday - 8am - 5pm [facility] Address: [address], [place] [address] [facility] Address: [address] [place] [id number] Sunday thru Sunday- 7am-2pm [facility] Address: [address], [place] [address] Sunday thru Sunday: 8:30AM-5PM Prescriptions: risperiDONE [RisperDAL] 1 mg PO BID 30 Days #60 Referrals: ENMANUEL SALGADO MD [Primary Care Provider] - 3-5 Days
[2022-03-13 03:43] LABS: Blood Urea Nitrogen 5 mg/dL (7-17); Calcium 8.5 mg/dL (8.4-10.2); Hemolysis Index 58
[2022-03-13 03:46] LABS: BUN/Creatinine Ratio 8
[2022-03-13 03:55] LABS: Hematocrit 37.3 % (30.3-42.9); Hemoglobin 11.7 gm/dl (10.1-14.3); Mean Corpuscular HGB Conc 31 % (30-34); Mean Corpuscular Volume 78 fl (79-97); Platelet Count 249 K/mm3 (140-440); Red Cell Distribution Width 17.9 % (13.2-15.2)
[2022-03-13 04:02] LABS: Amphetamine Screen,Urine PRESUMPTIVE NEGATIVE; Benzodiazepines Screen,Urine PRESUMPTIVE NEGATIVE; Cannabinoid Screen,Urine PRESUMPTIVE NEGATIVE; Cocaine Screen,Urine PRESUMPTIVE NEGATIVE; Methadone Screen,Urine PRESUMPTIVE NEGATIVE; Opiate Screen,Urine PRESUMPTIVE NEGATIVE
[2022-03-13 04:14] LABS: Bacteria,Urine 1+ /HPF (Negative); Mucus,Urine 2+ /HPF
[2022-03-13 04:27] LABS: Bilirubin,Urine Negative (Negative); Blood,Urine Negative (Negative); Color,Urine Yellow (Yellow)
[2022-03-13 04:28] LABS: Protein,Urine <15 mg/dL mg/dL (Negative); Urobilinogen,Urine 0.2 mg/dL (<2.0)
[2022-03-13 06:28] LABS: Basophils % (Manual) 0 % (0.0-1.8); Eosinophils % (Manual) 0 % (0.0-4.3); Hypochromasia 1+; Ovalocytes 1+; Platelet Estimate Consistent w Auto; Total Cells Counted 100
--- NOTE | 2022-03-13 11:57 | Consultation ---
History of Present Illness - Reason for Consult Consult date: 03/13/22 Reason for consult: mental health evaluation - History of Present Psychiatric Illness The patient is a 41 year old female with history of schizophrenia and bipolar disorder who presents to the ED for medical clearance. The patient was seen today. She is calm, and cooperative. The patient continues to endorse depression with suicidal ideation and auditory hallucinations " voices saying to hurt mys elf," she denies having a plan. Psychiatric History Diagnoses: schizophrenia and bipolar Suicide attempts or Self-harm behavior: yes Prior psychiatric hospitalizations: yes Substance Abuse history: Denies Previous psychiatric medications tried: unable to recall Outpatient treatment: Denies PAST MEDICAL HISTORY: None reported Family Psychiatric History: None reported or documented SOCIAL HISTORY Marital Status: single Living Arrangements:lives with caregiver Employment Status: unemployed Access to guns/weapons: Denies Education: 12th grade History of Abuse: none reported Legal History: none reported REVIEW OF SYSTEMS Constitutional: Negative for weight loss ENT: Negative for stridor Respiratory: Negative for cough or hemoptysis All other systems reviewed and are negative MENTAL STATUS EXAMINATION General Appearance and Behavior: Age appropriate, good hygiene, wearing appropriate clothes, cooperative Cooperation: Participating/engaged Psychomotor Behavior: normal Mood: Depressed Affect and affective range: congruent with stated mood Thought Process: Goal directed Thought Content: SI, hallucinations Speech: Normal volume, Regular rate and rhythm Suicidal Ideation: yes Homicidal Ideation: Denies Hallucinations: Auditory Delusions: None elicited Impulse Control: impaired Insight and Judgment: limited insight and judgment, Memory: normal Attention: Normal Orientation: Alert, oriented Assessment and Plan (1)Schizoaffective Disorder Current Visit: Yes Status: Acute Treatment Plan 1013 Continue home meds Risperidone 1mg po BID PSYCHOTHERAPY: Supportive psychotherapy provided MEDICAL: Per primary team DELIRIUM PRECAUTIONS: Please re-orient patient frequently, keep lights on during the day, and minimize benzodiazepines and opiates as these medications could worsen patient's confusion. OFFICE EMPLOYEE: Per medical team DISPOSITION: Recommend acute psychiatric inpatient treatment. Will follow. Thank you for the consult. Case staffed with Dr. Noel Medications and Allergies Medications and Allergies Allergies Allergy/AdvReac Type Severity Reaction Status Date / Time No Known Allergies Allergy Verified 03/13/22 05:24 Home Medications Medication Instructions Recorded Confirmed Last Taken Type Divalproex Sodium [Depakote] 500 mg PO BID 11/19/18 08/15/19 Unknown History QUEtiapine [SEROquel] 200 mg PO QHS 11/19/18 08/15/19 Unknown History Donepezil HCl [Donepezil HCl Odt] 5 mg PO 08/15/19 Unknown History Gabapentin 300 08/15/19 Unknown History Lacosamide [Vimpat] 200 08/15/19 Unknown History Loratadine [Allergy Relief] 10 mg PO QDAY #30 tablet 11/05/20 Unknown Rx Prednisone [predniSONE 5 mg (6-Day 5 mg PO .TAPER #1 tab.ds.pk 06/12/21 Unknown Rx Pack, 21 Tabs)] Promethazine Dm (Nf) [Phenergan DM 5 ml PO Q6H PRN #110 06/12/21 Unknown Rx 6.25-15 mg/5 ml] Doxepin [SINEquan] 10 mg PO QHS #30 capsule 11/28/21 Unknown Rx risperiDONE [RisperDAL] 0.5 mg PO BID #60 11/28/21 Unknown Rx Mental Status Exam - Vital signs Last Vital Signs Temp 97.9 F 03/13/22 09:47 Pulse 66 03/13/22 09:47 Resp 16 03/13/22 09:47 BP 144/99 03/13/22 09:47 Pulse Ox 97 03/13/22 09:48 Results Result Diagrams: 03/13/22 03:14 03/13/22 03:14 Abnormal lab results 03/13/22 03/13/22 03/13/22 Range/Units 03:14 03:14 03:14 MCV 78 L (79-97) fl MCH 24 L (28-32) pg RDW 17.9 H (13.2-15.2) % Seg Neuts % (Manual) 72.0 H (40.0-70.0) % Sodium 134 L (137-145) mmol/L Carbon Dioxide 21 L (22-30) mmol/L BUN 5 L (7-17) mg/dL Salicylates < 0.3 L (2.8-20.0) mg/dL Acetaminophen (10.0-30.0) ug/mL 03/13/22 Range/Units 03:14 MCV (79-97) fl MCH (28-32) pg RDW (13.2-15.2) % Seg Neuts % (Manual) (40.0-70.0) % Sodium (137-145) mmol/L Carbon Dioxide (22-30) mmol/L BUN (7-17) mg/dL Salicylates (2.8-20.0) mg/dL Acetaminophen 5.0 L (10.0-30.0) ug/mL All other labs normal.
[2022-03-13] MEDS: risperiDONE 1 MG TAB PO SCH (14:11)
--- NOTE | 2022-03-13 16:46 | Event Note ---
Date: 03/13/22 Chart reviewed. No overnight events. VSS. Pt agitated in MH holding area. Pt ordered for Ziprasidone 20mg. Pt continues to await final disposition by mental health.
[2022-03-14 09:17] VITALS: BP 107/61
[2022-03-14] MEDS: risperiDONE 1 MG TAB PO SCH (09:59)
--- NOTE | 2022-03-14 11:46 | Progress Note ---
Subjective - Reason for Consult Consult date: 03/14/22 Reason for consult: hallucinations - Chief Complaint Chief complaint: The patient was seen today. She is calm and cooperative. The patient reports sleep and appetite was good, states her mood is fine. She denies any current suicidal/homicidal ideation and denies hallucinations. REVIEW OF SYSTEMS Constitutional: Negative for weight loss ENT: Negative for stridor Respiratory: Negative for cough or hemoptysis All other systems reviewed and are negative MENTAL STATUS EXAMINATION General Appearance and Behavior: Age appropriate, good hygiene, wearing appropriate clothes, cooperative Cooperation: Participating/engaged Psychomotor Behavior: normal Mood: Depressed Affect and affective range: congruent with stated mood Thought Process: Goal directed Thought Content: Reality Oriented Speech: Normal volume, Regular rate and rhythm Suicidal Ideation: Denies Homicidal Ideation: Denies Hallucinations: Denies Delusions: None elicited Impulse Control: impaired Insight and Judgment: limited insight and judgment, Memory: normal Attention: Normal Orientation: Alert, oriented Assessment and Plan (1)Schizoaffective Disorder Current Visit: Yes Status: Acute Treatment Plan DC 1013 Continue home meds Risperidone 1mg po BID PSYCHOTHERAPY: Supportive psychotherapy provided MEDICAL: Per primary team DELIRIUM PRECAUTIONS: Please re-orient patient frequently, keep lights on during the day, and minimize benzodiazepines and opiates as these medications could worsen patient's confusion. INTERIOR DESIGN INSTRUCTOR: Per medical team DISPOSITION: Do not recommend acute psychiatric inpatient treatment. Associate Automation Engineer will provide patient with psychiatric outpatient resources. Will sign off. Thank you for the consult. Case staffed with Dr. Noel Medications and Allergies Mental Status Exam - Vital signs Last Vital Signs Temp 98.6 F 03/14/22 09:17 Pulse 62 03/14/22 09:17 Resp 16 03/14/22 09:17 BP 107/61 03/14/22 09:17 Pulse Ox 97 03/14/22 09:17
--- NOTE | 2022-03-14 12:36 | Emergency Department Report ---
Blank Doc - Documentation Documentation: 41 yo female with h/o bipolar disorder and schizophrenia presents to the emerg ency department while admitted to [facility] reported that she may have overdosed and was agitated.. Patient has been cleared by psychiatry, and will be discharged home with resources. I have rescinded her 1013, and patient will be discharged home, now.
== END 2022-03-14 19:54 | disposition home or self-care (01) ==
LOC: EEVIPCON 02:43 → ED 02:43
DX: R45.1 Restlessness and agitation (principal); I10 Essential (primary) hypertension; R56.9 Unspecified convulsions; F31.9 Bipolar disorder, unspecified; J45.909 Unspecified asthma, uncomplicated; F03.90 Unspecified dementia, unspecified severity, without behavioral disturbance, psychotic disturbance, mood disturbance, and anxiety; Z20.822 Contact with and (suspected) exposure to COVID-19; Z79.899 Other long term (current) drug therapy; F17.200 Nicotine dependence, unspecified, uncomplicated
CPT/HCPCS: 36415; 80048; 80307; 81001; 85007; 85025; 96372; 99284; J3486; U0003; 80320; G0480